=== PATIENT | male | born 1995 | race Caucasian/White ===

== ENCOUNTER 2016-09-04 15:08 | Emergency (ER) | payer OTHER ==
[~2016-09-04] VITALS: Ht 175.3 cm; Wt 56.7 kg
[2016-09-04 17:01] VITALS: BP 130/78
== END 2016-09-04 17:01 | disposition home or self-care (01) ==
LOC: EDBD 15:08 → M ED 16:16
DX: R07.89 Other chest pain (principal)

== ENCOUNTER 2016-09-15 12:00 | Inpatient (IN) | payer OTHER ==
[~2016-09-15] VITALS: Ht 175.3 cm; Wt 57.7 kg
[2016-09-15] MEDS ORDERED: ADV100INH INH (12:17)
[2016-09-15] MEDS ORDERED: ALBU17IN2 INH (12:17)
[2016-09-15 12:54] LABS: MEAN CORPUSCULAR HEMOGLOBIN 30.7 pg (27.0-33.0); MEAN CORPUSCULAR HGB CONC 34.8 g/dl (32.0-36.5); MEAN CORPUSCULAR VOLUME 88.1 fl (80.0-96.0); RED CELL DISTRIBUTION WIDTH 11.7 % (11.5-14.5); WHITE BLOOD COUNT 7.7 K/mm3 (4.0-10.0)
[2016-09-15 13:57] LABS: ALBUMIN 4.1 GM/DL (3.2-5.2); ALBUMIN/GLOBULIN RATIO 1.41 (1.00-1.93); ALKALINE PHOSPHATASE 81 U/L (45-117); ALT/SGPT 30 U/L (12-78); ANION GAP 6 MEQ/L (8-16); AST/SGOT 29 U/L (15-37); BILIRUBIN,DIRECT 0.2 MG/DL (0.0-0.2); BILIRUBIN,TOTAL 0.9 MG/DL (0.2-1.0); BLOOD UREA NITROGEN 14 MG/DL (7-18); CARBON DIOXIDE LEVEL 29 MEQ/L (21-32); CHLORIDE LEVEL 105 MEQ/L (98-107); CREATININE FOR GFR 0.81 MG/DL (0.70-1.30); GLUCOSE, FASTING 84 MG/DL (70-105); POTASSIUM SERUM 4.2 MEQ/L (3.5-5.1); SODIUM LEVEL 140 MEQ/L (136-145)
[2016-09-15 14:14] LABS: METHADONE URINE NEGATIVE (NEGATIVE)
[2016-09-15 17:13] VITALS: BP 123/73
[2016-09-15] MEDS ORDERED: ALBUTEROL 90 MCG/ACT 8GM HFA INHALER INH ONE (19:15)
[2016-09-15] MEDS: ADVAIR DISKUS 100/50 INH PWD INH SCH (22:03)
[2016-09-16 06:55] VITALS: BP 100/56
[2016-09-16] MEDS ORDERED: ALBUTEROL 90 MCG/ACT 8GM HFA INHALER INH SCH (09:00)
[2016-09-16] MEDS: ADVAIR DISKUS 100/50 INH PWD INH SCH ×2 (09:09→22:54)
[2016-09-16 18:00] VITALS: BP 113/60
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
[2016-09-16] MEDS ORDERED: ALBUTEROL 90 MCG/ACT 8GM HFA INHALER INH PRN (23:45)
--- NOTE | 2016-09-17 04:46 | HPE ---
DATE OF ADMISSION: 09/15/2016 HISTORY OF PRESENT ILLNESS: Please refer to psychiatric history and evaluation for further details on this admission. This examination and history is intended for medical issues, which may need treatment, followup or consult on this 20-year-old male. ALLERGIES: NICKEL. PRIMARY CARE PROVIDER: [facility]. 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 Ethyl alcohol (EtOH) none. Smokes none. Recreational drug use none. PAST MEDICAL HISTORY: Asthma. PAST SURGICAL HISTORY: Negative. HOME MEDICATIONS: - Advair 150/50 one inhalation by mouth twice a day - albuterol two puffs by mouth three times a day as needed for shortness of breath or wheeze FAMILY HISTORY: Noncontributory. LABORATORY STUDIES: CBC was normal. Electrolytes were normal. BUN and creatinine 14 and 0.81. Toxicology screen negative. REVIEW OF SYSTEMS: 10-system review was done. Patient had no complaints, was feeling well. OBJECTIVE: Height 69 inches, weight 57.6 kg, body mass index (BMI) 18.8. Blood pressure 122/73, pulse 75, respirations 16, temperature 98.2. Patient is alert and oriented times three. Pupils equal and react to light. Extraocular muscles intact. Cornea and sclerae clear. Conjunctivae were normal. No facial asymmetry. Pharynx, tongue and gums pink and moist. Tongue is midline. Neck is supple without lymphadenopathy. No thyromegaly, no goiter. Chest clear to auscultation without wheeze or retraction. Heart is regular. Abdomen is benign. Has a few very superficial self-inflicted lacerations. No redness or drainage. Bowel sounds positive. Genitourinary/rectal: Not done. Extremities show equal strength, full range of motion. No cyanosis, clubbing or edema. Peripheral pulses equal and palpable bilaterally. Skin is warm and dry. IMPRESSION/PLAN: 1. Psychiatric plan per psychiatry. 2. History of asthma. Continue Advair 100/50 one inhalation by mouth twice a day and albuterol two puffs by mouth three times a day as needed for shortness of breath or wheeze. No acute medical issues.
[2016-09-17 06:33] VITALS: BP 135/60
[2016-09-17] MEDS: ADVAIR DISKUS 100/50 INH PWD INH SCH ×2 (08:26→22:52)
[2016-09-17] MEDS ORDERED: MAALOX 30 ML SUSP *UDC PO PRN (13:45)
[2016-09-17] MEDS ORDERED: MOM 30ML SUSPENSION UDC PO PRN (13:45)
[2016-09-17] MEDS ORDERED: ACETAMINOPHEN TAB 650MG DOSE (2X325MG) PO PRN (13:45)
[2016-09-17] MEDS ORDERED: traZODone 50 MG TAB PO PRN (13:45)
[2016-09-17 18:00] VITALS: BP 110/58
--- NOTE | 2016-09-18 06:10 | IPN ---
DATE: 09/17/2016 SUBJECTIVE: The patient states, "I'm feeling pretty good." He has no complaints. He says he slept well. Says he has not had any episodes of blackouts. He says that sometimes he heard the moaning voice, but seems to be quite distant and is not bothering him.. MENTAL STATUS EXAMINATION: He is alert and oriented times three. He is pleasant, cooperative. Verbally spontaneous. There is no formal thought disorder noted. He says his mood is good , and affect full range and appropriate. He is not psychotic, suicidal, or homicidal. Concentration and memory are good. Insight and judgment good. DIAGNOSES: 1. Adjustment disorder, unspecified. 2. History of conversion disorder. TREATMENT PLAN: At this point, we will continue to monitor the patient for continued resolution of any self harm thoughts. Also, again I will clarify that I do not think that the patient is really having hallucinations. We have not noticed any episodes of blackouts or anything consistent with conversion disorder. At this point, I do not think treatment with medication is indicated. JANINA
[2016-09-18 06:50] VITALS: BP 112/57
[2016-09-18] MEDS: ADVAIR DISKUS 100/50 INH PWD INH SCH ×2 (08:50→21:43)
--- NOTE | 2016-09-18 13:43 | IPNPDOC ---
[facility] Progress Note Progress Note DATE OF SERVICE: 09/18/16 HISTORY: Patient is 20-year-old male who was previously active with [facility] outpatient behavioral health noting he is being reported for conversion disorder , was recently admitted to the inpatient environment due to suicidal thinking with desire to walk into traffic. Patient indicates he has been diagnosed with conversion disorder due to experiencing episodes where he gets dizzy, experiences chest pain, shortness of breath and, at times passes out. In addition, patient recently engaged in cutting to abdominal area noting he has no recollection of event. Patient indicates he does not sleep well, notes he slept approximately 5 hours last night, reports nightmares 4-5 nights per week, indicates he struggles with latency and maintenance sleep problems. Patient rates current anxiety level as 2/10, depression 0/10 noting, "I don't see myself as depressed." Patient denies current suicidal and homicidal ideation, denies current audiovisual hallucinations, denies current urge to engage in self -injurious behavior. Patient states he experienced audio hallucination of "just a voice calling my name for help, if not distressing and it never tells me to do anything." Patient states he also experiences visual hallucinations noting, "sometimes I think I see someone out of the corner of my eye and then I turn and there is no one there." Patient denies history of suicide attempts or self- injurious behavior prior to recent abdominal SIB. Patient attributes symptoms to stress related to current living situation and "stress from the [employer]," adding he has "no clue why symptoms are occurring, they just seem to happen when I get hot-headed or worked up, and especially when I'm exercising." Patient describes symptoms as "my throat swells, I get short of breath, I just feels like it's trying to sleep, get dizzy, sometimes I get blurred vision, and then sometimes I lose my vision." Patient notes [facility] has "run multiple tests on my heart my lungs for the past 6 months and all they can come up with is asthma so, given the circumstances, I'm good with the med board so I can get out." Patient denies aforementioned symptoms at this time. Patient is currently declining psychotropic medications, was encouraged to consider connection between physical symptoms and symptoms of anxiety, was also encouraged to utilize trazodone for sleep in effort to reduce symptoms and regulate sleep cycle. Patient is future oriented, notes he has two plans for after med board completion. 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 VITAL SIGNS: See below. NEW TEST RESULTS: No new results. Labs on admission CBC within normal limits, low anion gap. Patient indicates he has undergone extensive testing related to symptoms of dizziness, shortness of breath, chest tightness which usually occur on exertion during PT exercises. Patient is a history of asthma for which she uses inhaler and migraine. UDS negative 03/30/16 echocardiogram normal 04/19/16 SINUS BRADYCARDIA WITH SHORT HI INTERVAL CURRENT MEDICATIONS: See below. MENTAL STATUS EXAMINATION: Patient is a 20-year old male, who is pleasant and cooperative, exhibits adequate personal hygiene, makes fair eye contact with prolonged gaze at times, is dressed in hospital clothing, ambulates with steady gait, appears stated age Speech: Is of normal rate, rhythm, volume, spontaneous, coherent. Language skills are within normal limits Thought processes including: Linear, logical, clear, goal directed. Thought content: Rational, logical. Abstract reasoning, and computation: Appear intact Description of associations: Intact Description of abnormal or psychotic thoughts: Reports audiovisual hallucinations, however, is vague in description, denies all command element to sensory experience. Judgment: Poor. Insight: Poor. Orientation: A and O 3. Recent and remote memory: Intact. Attention span and concentration: Within normal limits. Language: Within normal limits. Fund of knowledge: Appears adequate. Mood: "Okay" Affect: Mild constriction, brightens, congruent with mood DIAGNOSES: Adjustment disorder with anxiety, rule out anxiety disorder, rule out PTSD, conversion disorder by history ASSESSMENT: Patient appears to be adjusting to unit, is attending groups, is visible, and is pleasant and cooperative. Patient minimizes symptoms, denies understanding of possible connection between reported physical symptoms and psychological symptoms, is declining psychotropic medications at this time noting, "I prefer to do things the natural way." Patient reports history of poor sleep involving both latency and maintenance challenges, and nightmares. Patient has been encouraged to consider taking psychotropic medications and has been encouraged to take trazodone at night for sleep in effort to regulate circadian rhythm and reduce symptoms of anxiety. Will evaluate need for prazosin to address nightmares. Patient denies suicidal and homicidal ideation and is able to verbalize how to access supportive services on the unit if needed. Will monitor patient response to inpatient treatment and medications if he elects to take. Will evaluate patient's safety, resolution of suicidal ideation, and discharge readiness. Patient verbalizes awareness that discharge plan will be to return to [facility], is agreeable to participating in outpatient psychotherapy upon discharge. MANAGEMENT PLAN: Encourage patient to consider taking psychotropic medication to address symptoms if appropriate Maintain safety precautions Patient to attend groups and participate in unit programming to develop coping strategies Engage patient in discharge planning process and arrange meeting with support system to ensure safe discharge planning when appropriate Patient to follow up with [facility] upon discharge TIME SPENT: 35 minutes. Vital Signs Vital Signs Date Time Temp Pulse Resp B/P Pulse Ox O2 Delivery O2 Flow Rate FiO2 09/18/16 06:50 98.2 58 18 112/57 09/17/16 06:33 Room Air 09/15/16 17:13 100 Current Medications Current Medications Acetaminophen (Tylenol Tab) 650 mg Q6HP PRN PO HEADACHE or DISCOMFORT; Start at 13:45; Stop 10/17/16 at 13:44 Al Hydrox/Mg Hydrox/Simethicone (Mylanta) 30 ml Q4HP PRN PO HEARTBURN/ INDIGESTION; Start 09/17/16 at 13:45; Stop 10/17/16 at 13:44 Albuterol Sulfate (Proventil, Ventolin Hfa) 2 puff DAILY INH Last administered on 09/16/16t 09:09; Start 09/16/16 at 09:00; Stop 09/16/16 at 23:42; Status DC Albuterol Sulfate (Proventil, Ventolin Hfa) 2 puff Q6HP PRN INH SHORTNESS OF BREATH; Start 09/16/16 at 23:45; Stop 10/16/16 at 23:44 Home Med (Med Rec Complete!) ASDIRECTED XX ; Start 09/15/16 at 15:15; Stop at 15:15; Status DC Magnesium Hydroxide (Milk Of Magnesia) 30 ml DAILYPRN PRN PO CONSTIPATION; Start 09/17/16 at 13:45; Stop 10/17/16 at 13:44 Salmeterol Xinafoate/ Fluticasone (Advair Diskus 100/50) 1 puff BID INH Last administered on 09/18/16t 08:50; Start 09/15/16 at 21:00; Stop 10/15/16 at 20:59 Trazodone HCl (Desyrel) 50 mg QHSP PRN PO INSOMNIA; Start 09/17/16 at 13:45; Stop 10/17/16 at 13:44 Allergies Coded Allergies: Nickel (Verified Allergy, Unknown, 05/02/16) Cheyenne Andersen Sep 18, 2016 13:43
[2016-09-18 18:00] VITALS: BP 118/67
[2016-09-19 06:42] VITALS: BP 118/56
[2016-09-19] MEDS: ADVAIR DISKUS 100/50 INH PWD INH SCH ×2 (08:02→21:23)
--- NOTE | 2016-09-19 15:17 | IPNPDOC ---
[facility] Progress Note Progress Note DATE OF SERVICE: 09/19/16 HISTORY: Patient is 20-year-old male who was previously active with [facility] noting he is being reported for conversion disorder , was recently admitted to the inpatient environment due to suicidal thinking with desire to walk into traffic, had recent superficial cutting episode to abdominal area. Patient states he has been diagnosed with conversion disorder ( unconfirmed) due to experiencing episodes where he gets dizzy, experiences chest pain, shortness of breath and, at times passes out. In addition, patient recently engaged in cutting to abdominal area noting he has no recollection of event. Patient reports improved sleep with use of trazodone last night, however , indicates he experienced latency of approximately 45 minutes and woke up 4-5 times during the night, is today requesting dose increase in effort to rectify aforementioned sleep challenges. Patient reports improvement to symptoms of anxiety and depression, denies audiovisual hallucinations, denies suicidal and homicidal ideation, denies urge to engage in self-injurious behavior. Patient reports 2 brief episodes of dizziness which occurred last night, notes this is typical for him and verbalizes safety precautions and ways to mitigate symptoms should they recur. Patient was placed on fall precautions and was instructed to notify nursing should symptoms reemerge. Patient denies symptoms of throat swelling, pain, blurred vision, loss of vision, syncope, reiterates today that multiple pulmonary and cardiac tests and run with no medical diagnoses concluded. Patient indicates it is his understanding that he is being med board out of the [employer]. Patient remains future oriented, reiterates today he has two plans for after med board completion. 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 VITAL SIGNS: See below. NEW TEST RESULTS: No new results. Labs on admission CBC within normal limits, low anion gap. Patient indicates he has undergone extensive testing related to symptoms of dizziness, shortness of breath, chest tightness which usually occur on exertion during PT exercises. Patient is a history of asthma for which she uses inhaler and migraine. UDS negative 03/30/16 echocardiogram normal 04/19/16 SINUS BRADYCARDIA WITH SHORT DE INTERVAL CURRENT MEDICATIONS: See below. MENTAL STATUS EXAMINATION: Patient is a 20-year old male, who is pleasant and cooperative, exhibits adequate personal hygiene, makes fair eye contact with normal gaze, is dressed in hospital clothing, ambulates with steady gait, appears stated age Speech: Is of normal rate, rhythm, volume, spontaneous, coherent. Language skills are within normal limits Thought processes including: Linear, logical, clear, goal directed. Thought content: Rational, logical. Abstract reasoning, and computation: Appear intact Description of associations: Intact Description of abnormal or psychotic thoughts: Denies audiovisual hallucinations , denies delusional thinking, no paranoia noted. At intake patient reported history of audiovisual hallucinations, however, was vague in description, denied all command element to sensory experience. Judgment: Poor. Insight: Poor. Orientation: A and O 3. Recent and remote memory: Intact. Attention span and concentration: Within normal limits. Language: Within normal limits. Fund of knowledge: Appears adequate. Mood: "Okay, better " Affect: Mild constriction, brightens, congruent with mood DIAGNOSES: Adjustment disorder with anxiety, rule out anxiety disorder, rule out PTSD, conversion disorder by history per patient report ASSESSMENT: Patient appears to be adjusting well to unit, has been attending groups, is socializing with peers and is visible on unit. Patient 10 use to minimize symptoms, denies understanding of possible connection between reported physical symptoms and psychological symptoms, is declining antidepressant medication at this time. Patient is requesting trazodone dose increase in effort to reduce latency and improve maintenance, denies medication side effects , denies experiencing nightmares last night. Will continue to evaluate need for prazosin to address nightmare symptoms of reported. Patient denies suicidal and homicidal ideation and is able to verbalize how to access supportive services on the unit if needed. Will monitor patient response to trazodone and inpatient treatment. Will also evaluate patient's safety, resolution of suicidal ideation , and discharge readiness. Patient verbalizes awareness that discharge plan will be to return to [facility], is agreeable to participating in outpatient psychotherapy upon discharge. MANAGEMENT PLAN: Increase trazodone to 100 mg po hs PRN insomnia. Continue to encourage patient to consider taking antidepressant medication to address symptoms if appropriate Patient placed on fall precautions Maintain safety precautions Patient to attend groups and participate in unit programming to develop coping strategies Engage patient in discharge planning process and arrange meeting with support system to ensure safe discharge planning when appropriate Patient to follow up with [facility] upon discharge TIME SPENT: 25 minutes. Vital Signs Vital Signs Date Time Temp Pulse Resp B/P Pulse Ox O2 Delivery O2 Flow Rate FiO2 09/19/16 06:42 98.9 76 16 118/56 09/17/16 06:33 Room Air 09/15/16 17:13 100 Current Medications Current Medications Acetaminophen (Tylenol Tab) 650 mg Q6HP PRN PO HEADACHE or DISCOMFORT; Start at 13:45; Stop 10/17/16 at 13:44 Al Hydrox/Mg Hydrox/Simethicone (Mylanta) 30 ml Q4HP PRN PO HEARTBURN/ INDIGESTION; Start 09/17/16 at 13:45; Stop 10/17/16 at 13:44 Albuterol Sulfate (Proventil, Ventolin Hfa) 2 puff DAILY INH Last administered on 09/16/16 09:09; Start 09/16/16 at 09:00; Stop 09/16/16 at 23:42; Status DC Albuterol Sulfate (Proventil, Ventolin Hfa) 2 puff Q6HP PRN INH SHORTNESS OF BREATH; Start 09/16/16 at 23:45; Stop 10/16/16 at 23:44 Home Med (Med Rec Complete!) ASDIRECTED XX ; Start 09/15/16 at 15:15; Stop at 15:15; Status DC Magnesium Hydroxide (Milk Of Magnesia) 30 ml DAILYPRN PRN PO CONSTIPATION; Start 09/17/16 at 13:45; Stop 10/17/16 at 13:44 Salmeterol Xinafoate/ Fluticasone (Advair Diskus 100/50) 1 puff BID INH Last administered on 09/19/16 08:02; Start 09/15/16 at 21:00; Stop 10/15/16 at 20:59 Trazodone HCl (Desyrel) 50 mg QHSP PRN PO INSOMNIA Last administered on 22:58; Start 09/17/16 at 13:45; Stop 10/17/16 at 13:44 Allergies Coded Allergies: Nickel (Verified Allergy, Unknown, 05/02/16) Cheyenne Andersen Sep 19, 2016 15:17 Allergies Coded Allergies: Nickel (Verified Allergy, Unknown, 05/02/16) Cheyenne Andersen Sep 19, 2016 15:17
[2016-09-19 18:00] VITALS: BP 144/78
[2016-09-19] MEDS: traZODone 100 MG TAB PO PRN (21:24)
[2016-09-20 06:42] VITALS: BP 126/60
[2016-09-20] MEDS: ADVAIR DISKUS 100/50 INH PWD INH SCH ×2 (09:33→21:45)
--- NOTE | 2016-09-20 10:04 | IPNPDOC ---
[facility] Progress Note Progress Note DATE OF SERVICE: 09/20/16 HISTORY: Patient is 20-year-old male who was previously active with [facility] noting he is being reported for conversion disorder , was recently admitted to the inpatient environment due to suicidal thinking with desire to walk into traffic, had recent superficial cutting episode to abdominal area. Patient states he has been diagnosed with conversion disorder due to experiencing episodes where he gets dizzy, experiences chest pain, shortness of breath and, at times passes out. In addition, patient recently engaged in cutting to abdominal area noting he has no recollection of event. Patient reports improved sleep with dose increase of trazodone last night, reports nightmare 1 adding symptoms are manageable. Patient states he had "episode" last night where in he became very anxious with dizziness, feeling like he wanted to hit something, states he was able to talk to a friend and color to effectively de-escalate. However, patient indicates today he is interested in antidepressant medication trial, also makes requests for PRN anxiolytic should aforementioned symptoms return. Patient denies suicidal and homicidal ideation, denies audiovisual hallucinations, denies urge to engage in self-injurious behavior. Patient denies symptoms of throat swelling, pain, blurred vision, loss of vision, syncope, reiterates today that multiple pulmonary and cardiac tests and run with no medical diagnoses concluded. 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 Patient indicates energy level is low, appetite is stable, and he denies challenges with concentration focus. Patient remains future oriented, reiterates today he has two plans for after med board completion. 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 VITAL SIGNS: See below. NEW TEST RESULTS: No new results. Labs on admission CBC within normal limits, low anion gap. Patient indicates he has undergone extensive testing related to symptoms of dizziness, shortness of breath, chest tightness which usually occur on exertion during PT exercises. Patient is a history of asthma for which she uses inhaler and migraine. UDS negative 03/30/16 echocardiogram normal 04/19/16 SINUS BRADYCARDIA WITH SHORT [place] INTERVAL CURRENT MEDICATIONS: See below. MENTAL STATUS EXAMINATION: Patient is a 20-year old male, who is pleasant and cooperative, exhibits adequate personal hygiene, makes improved eye contact, is dressed in own clothing, ambulates with steady gait, appears stated age Speech: Is of normal rate, rhythm, volume, spontaneous, coherent. Language skills are within normal limits Thought processes including: Linear, logical, clear, goal directed. Thought content: Rational, logical. Abstract reasoning, and computation: Appear intact Description of associations: Intact Description of abnormal or psychotic thoughts: Denies audiovisual hallucinations , denies delusional thinking, no paranoia noted. At intake patient reported history of audiovisual hallucinations, however, was vague in description, denied all command element to sensory experience. Judgment: Poor. Insight: Poor. Orientation: A and O 3. Recent and remote memory: Intact. Attention span and concentration: Within normal limits. Language: Within normal limits. Fund of knowledge: Appears adequate. Mood: "I'm a little anxious, may be medication would help." Patient appears anxious and depressed, no mood lability noted Affect: Mild constriction, brightens, congruent with mood DIAGNOSES: Adjustment disorder with anxiety, rule out anxiety disorder, rule out PTSD, conversion disorder by history per patient report ASSESSMENT: Patient appears to be adjusting well to unit, has been attending groups, is socializing with peers and is visible on unit. Patient is minimizing symptoms less today, verbalizes awareness that he is experiencing anxiety and possibly depression, is today requesting psychotropic medication trial in effort to address symptoms. Patient is requesting to continue trazodone, also expresses desire for PRN anxiolytic should symptoms of agitation reemerge. Will initiate SSRI medication trial, will add hydroxyzine to be used PRN for anxiety , and will continue to evaluate need for prazosin to address nightmare symptoms. Patient denies suicidal and homicidal ideation and is able to verbalize how to access supportive services on the unit if needed. Will monitor patient response to medications and inpatient treatment. Will also evaluate patient's safety, resolution of suicidal ideation, and discharge readiness. Patient verbalizes awareness that discharge plan will be to return to [facility], is agreeable to participating in outpatient psychotherapy upon discharge. MANAGEMENT PLAN: Initiate med trial Zoloft 25 mg po q am with plan to titrate as tolerated by patient. Initiate hydroxyzine 50 mg po q 6 hours PRN anxiety/ agitation. Continue trazodone to 100 mg po hs PRN insomnia. Patient placed on fall precautions Maintain safety precautions Patient to attend groups and participate in unit programming to develop coping strategies Engage patient in discharge planning process and arrange meeting with support system to ensure safe discharge planning when appropriate Patient to follow up with [facility] upon discharge TIME SPENT: 35 minutes. Vital Signs Vital Signs Date Time Temp Pulse Resp B/P Pulse Ox O2 Delivery O2 Flow Rate FiO2 09/20/16 06:42 98.1 61 16 126/60 09/17/16 06:33 Room Air 09/15/16 17:13 100 Current Medications Current Medications Acetaminophen (Tylenol Tab) 650 mg Q6HP PRN PO HEADACHE or DISCOMFORT; Start at 13:45; Stop 10/17/16 at 13:44 Al Hydrox/Mg Hydrox/Simethicone (Mylanta) 30 ml Q4HP PRN PO HEARTBURN/ INDIGESTION; Start 09/17/16 at 13:45; Stop 10/17/16 at 13:44 Albuterol Sulfate (Proventil, Ventolin Hfa) 2 puff DAILY INH Last administered on 09/16/16 09:09; Start 09/16/16 at 09:00; Stop 09/16/16 at 23:42; Status DC Albuterol Sulfate (Proventil, Ventolin Hfa) 2 puff Q6HP PRN INH SHORTNESS OF BREATH; Start 09/16/16 at 23:45; Stop 10/16/16 at 23:44 Home Med (Med Rec Complete!) ASDIRECTED XX ; Start 09/15/16 at 15:15; Stop at 15:15; Status DC Magnesium Hydroxide (Milk Of Magnesia) 30 ml DAILYPRN PRN PO CONSTIPATION; Start 09/17/16 at 13:45; Stop 10/17/16 at 13:44 Salmeterol Xinafoate/ Fluticasone (Advair Diskus 100/50) 1 puff BID INH Last administered on 09/20/16 09:33; Start 09/15/16 at 21:00; Stop 10/15/16 at 20:59 Sertraline HCl (Zoloft) 25 mg QAM PO ; Start 09/20/16 at 09:00; Stop 10/20/16 at 08:59 Trazodone HCl (Desyrel) 50 mg QHSP PRN PO INSOMNIA Last administered on 22:58; Start 09/17/16 at 13:45; Stop 09/19/16 at 15:07; Status DC Trazodone HCl (Desyrel) 100 mg QHSP PRN PO INSOMNIA Last administered on 21:24; Start 09/19/16 at 15:15; Stop 10/19/16 at 15:14 Allergies Coded Allergies: Nickel (Verified Allergy, Unknown, 05/02/16) Cheyenne Andersen Sep 20, 2016 10:04
[2016-09-20] MEDS: SERTRALINE HCL 25 MG TABLET PO SCH (10:15)
[2016-09-20] MEDS: traZODone 100 MG TAB PO PRN (22:54)
[2016-09-20] MEDS: hydrOXYzine 50 MG TAB PO PRN (23:29)
[2016-09-21 06:34] VITALS: BP 123/60
[2016-09-21] MEDS: ADVAIR DISKUS 100/50 INH PWD INH SCH ×2 (07:59→22:02)
[2016-09-21] MEDS: SERTRALINE HCL 25 MG TABLET PO SCH (07:59)
[2016-09-21 18:00] VITALS: BP 132/60
--- NOTE | 2016-09-21 19:02 | IPNPDOC ---
[facility] Progress Note Progress Note DATE OF SERVICE: 09/21/16 HISTORY: Patient is 20-year-old male who was previously active with [facility] noting he is being reported for conversion disorder , was recently admitted to the inpatient environment due to suicidal thinking with desire to walk into traffic, had recent superficial cutting episode to abdominal area. Patient states he has been diagnosed with conversion disorder due to experiencing episodes where he gets dizzy, experiences chest pain, shortness of breath and, at times passes out. In addition, patient recently engaged in cutting to abdominal area noting he has no recollection of event. Patient rates current anxiety level is 3/10, depression 4/10, denies suicidal and homicidal ideation, denies current audiovisual hallucinations, denies urge to engage in self-injurious behavior. With regard to audio visual hallucinations patient indicates last night while lying in bed he felt as if he was being watched and thought he heard laughing. Patient notes he then saw a "little kid crunching by some wall lockers who called me dad." Patient denies all command element to sensory experience and indicates he was attempting to sleep in a dark room, has been advised to continue to monitor for symptoms, denies experiencing nightmare symptoms last night. Patient has taken 2 doses of Zoloft, denies medication side effects and denies experiencing episodes of anxiety or dizziness or desire to hit something, notes he has trialed PRN hydroxyzine 1 to address anxiety/sleep last night, notes medication worked with good effect. Patient denies symptoms of throat swelling, pain, blurred vision, loss of vision, syncope, reiterates today that multiple pulmonary and cardiac tests and run with no medical diagnoses concluded. 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 Patient indicates energy level is low, appetite is stable, and he denies challenges with concentration focus. Patient remains future oriented, has indicated he has two plans for after med board completion. 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 VITAL SIGNS: See below. NEW TEST RESULTS: No new results. Labs on admission CBC within normal limits, low anion gap. Patient indicates he has undergone extensive testing related to symptoms of dizziness, shortness of breath, chest tightness which usually occur on exertion during PT exercises. Patient is a history of asthma for which she uses inhaler and migraine. UDS negative 03/30/16 echocardiogram normal 04/19/16 SINUS BRADYCARDIA WITH SHORT [place] INTERVAL CURRENT MEDICATIONS: See below. MENTAL STATUS EXAMINATION: Patient is a 20-year old male, who is pleasant and cooperative, exhibits adequate personal hygiene, makes improved eye contact, is dressed in own clothing, ambulates with steady gait, appears stated age Speech: Is of normal rate, rhythm, volume, spontaneous, coherent. Language skills are within normal limits Thought processes including: Linear, logical, clear, goal directed. Thought content: Rational, logical. Abstract reasoning, and computation: Appear intact Description of associations: Intact Description of abnormal or psychotic thoughts: Denies audiovisual hallucinations at time of interaction, however, reports feelings of being watched and seeing a small child and hearing that child call him dad last night while lying in a dark room and attempting to sleep, denies delusional thinking, no paranoia noted at time of assessment. At intake patient reported history of audiovisual hallucinations, however, was vague in description, denied all command element to sensory experience. Judgment: Poor. Insight: Poor. Orientation: A and O 3. Recent and remote memory: Intact. Attention span and concentration: Within normal limits. Language: Within normal limits. Fund of knowledge: Appears adequate. Mood: "I'm ok," Patient appears moderately anxious and less depressed, no mood lability noted Affect: Mild constriction, brightens, congruent with mood DIAGNOSES: Adjustment disorder with anxiety, rule out anxiety disorder, rule out PTSD, conversion disorder by history per patient report ASSESSMENT: Patient appears to be adjusting well to unit, has been attending groups, is socializing with peers and is visible on unit. Patient is minimizing symptoms less today, verbalizes awareness that he is experiencing anxiety and possibly depression, has begun taking Zoloft and denies medication side effects , however, reports symptoms of audiovisual hallucinations occurred last night, will monitor to evaluate if connection to initiation of antidepressant medication. Patient is requesting to continue trazodone, has utilized PRN anxiolytic 1 with good effect reported. Will continue to evaluate need for prazosin to address nightmare symptoms. Patient denies suicidal and homicidal ideation and is able to verbalize how to access supportive services on the unit if needed. Will monitor patient response to medications and inpatient treatment. Will also evaluate patient's safety, resolution of suicidal ideation , and discharge readiness. Patient verbalizes awareness that discharge plan will be to return to [facility], is agreeable to participating in outpatient psychotherapy upon discharge. MANAGEMENT PLAN: Continue Zoloft 25 mg po q am with plan to titrate as tolerated by patient. Continue hydroxyzine 50 mg po q 6 hours PRN anxiety/ agitation and trazodone to 100 mg po hs PRN insomnia. Patient placed on fall precautions Maintain safety precautions Patient to attend groups and participate in unit programming to develop coping strategies Engage patient in discharge planning process and arrange meeting with support system to ensure safe discharge planning when appropriate Patient to follow up with [facility] upon discharge TIME SPENT: 35 minutes. Vital Signs Vital Signs Date Time Temp Pulse Resp B/P Pulse Ox O2 Delivery O2 Flow Rate FiO2 09/21/16 06:34 97.1 77 16 123/60 09/17/16 06:33 Room Air 09/15/16 17:13 100 Current Medications Current Medications Acetaminophen (Tylenol Tab) 650 mg Q6HP PRN PO HEADACHE or DISCOMFORT; Start at 13:45; Stop 10/17/16 at 13:44 Al Hydrox/Mg Hydrox/Simethicone (Mylanta) 30 ml Q4HP PRN PO HEARTBURN/ INDIGESTION; Start 09/17/16 at 13:45; Stop 10/17/16 at 13:44 Albuterol Sulfate (Proventil, Ventolin Hfa) 2 puff DAILY INH Last administered on 09/16/16 09:09; Start 09/16/16 at 09:00; Stop 09/16/16 at 23:42; Status DC Albuterol Sulfate (Proventil, Ventolin Hfa) 2 puff Q6HP PRN INH SHORTNESS OF BREATH; Start 09/16/16 at 23:45; Stop 10/16/16 at 23:44 Home Med (Med Rec Complete!) ASDIRECTED XX ; Start 09/15/16 at 15:15; Stop at 15:15; Status DC Hydroxyzine HCl (Atarax) 50 mg Q6HP PRN PO ANXIETY/AGITATION Last administered on 09/20/16 23:29; Start 09/20/16 at 10:15; Stop 10/20/16 at 10:14 Magnesium Hydroxide (Milk Of Magnesia) 30 ml DAILYPRN PRN PO CONSTIPATION; Start 09/17/16 at 13:45; Stop 10/17/16 at 13:44 Salmeterol Xinafoate/ Fluticasone (Advair Diskus 100/50) 1 puff BID INH Last administered on 09/21/16 07:59; Start 09/15/16 at 21:00; Stop 10/15/16 at 20:59 Sertraline HCl (Zoloft) 25 mg QAM PO Last administered on 09/21/16 07:59; Start 09/20/16 at 09:00; Stop 10/20/16 at 08:59 Trazodone HCl (Desyrel) 50 mg QHSP PRN PO INSOMNIA Last administered on 22:58; Start 09/17/16 at 13:45; Stop 09/19/16 at 15:07; Status DC Trazodone HCl (Desyrel) 100 mg QHSP PRN PO INSOMNIA Last administered on 22:54; Start 09/19/16 at 15:15; Stop 10/19/16 at 15:14 Allergies Coded Allergies: Nickel (Verified Allergy, Unknown, 05/02/16) Cheyenne Andersen Sep 21, 2016 19:02
[2016-09-21] MEDS: traZODone 100 MG TAB PO PRN (22:02)
[2016-09-22 05:57] VITALS: BP 109/56
[2016-09-22] MEDS: SERTRALINE HCL 25 MG TABLET PO SCH (08:08)
[2016-09-22] MEDS: ADVAIR DISKUS 100/50 INH PWD INH SCH ×2 (08:08→21:15)
--- NOTE | 2016-09-22 16:26 | IPNPDOC ---
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 Patient states he has been diagnosed with conversion disorder due to experiencing episodes where he gets dizzy, experiences chest pain, shortness of breath and, at times passes out. In addition, patient recently engaged in cutting to abdominal area noting he has no recollection of event. Patient states he had chain of command meeting earlier today which he indicates was highly anxiety provoking, rates current anxiety level as 6/10, depression 5/ 10, denies suicidal and homicidal ideation, denies audiovisual hallucinations, notes last experienced brief auditory hallucination last night and last experienced visual hallucinations 2 nights ago, denies command element to sensory experience and states were not distressing. Patient denies urge to engage in self injurious behavior. Patient reports improved sleep, indicates he had one nightmare last night from which he did not awaken, has been taking trazodone with good effect. Patient has taken Zoloft 3 days, reports reduction in symptoms of depression and anxiety, however, states "sometimes I just don't feel like myself." When asked to explain, patient indicates he is accustomed to feeling depressed and now feels less depressed, states to sports book writer, "when I was younger I was always a happy person and I would like to feel like that again." Patient appears fidgety during interaction and indicates he has "always been fidgety." Patient has trialed PRN hydroxyzine 1 to address anxiety /sleep challenges, notes medication was effective. Patient denies medication side effects and denies experiencing episodes of anxiety or dizziness or desire to hit something. 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 Patient reports improvement in energy level and denies challenges with concentration and focus, states appetite is stable. 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 Patient remains future oriented, has indicated he has two plans for after med board completion. 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 VITAL SIGNS: See below. NEW TEST RESULTS: No new results. Labs on admission CBC within normal limits, low anion gap. Patient indicates he has undergone extensive testing related to symptoms of dizziness, shortness of breath, chest tightness which usually occur on exertion during PT exercises. Patient is a history of asthma for which she uses inhaler and migraine. UDS negative 03/30/16 echocardiogram normal 04/19/16 SINUS BRADYCARDIA WITH SHORT [place] INTERVAL CURRENT MEDICATIONS: See below. MENTAL STATUS EXAMINATION: Patient is a 20-year old male, who is pleasant and cooperative, exhibits adequate personal hygiene, makes improved eye contact, is dressed in own clothing, ambulates with steady gait, appears stated age Speech: Is of normal rate, rhythm, volume, spontaneous, coherent. Language skills are within normal limits Thought processes including: Linear, logical, clear, goal directed. Thought content: Rational, logical. Abstract reasoning, and computation: Appear intact Description of associations: Intact Description of abnormal or psychotic thoughts: Denies audiovisual hallucinations at time of interaction, denies delusional thinking, no paranoia noted at time of assessment. Judgment: Poor. Insight: Poor. Orientation: A and O 3. Recent and remote memory: Intact. Attention span and concentration: Within normal limits. Language: Within normal limits. Fund of knowledge: Appears adequate. Mood: "I'm feeling sarmiento now, not as depressed but not happy wither." Patient appears moderately anxious and less depressed, no mood lability noted Affect: Mild constriction, brightens, congruent with mood DIAGNOSES: Adjustment disorder with anxiety, rule out anxiety disorder, rule out PTSD, conversion disorder by history per patient report ASSESSMENT: Patient appears to be adjusting well to unit, has been attending groups, is socializing with peers and is visible on unit. Patient has been taking Zoloft at current dose 3 days, is agreeable to dose increase today in effort to further reduce symptoms of anxiety and depression. Patient continues to utilize trazodone for sleep and has used hydroxyzine 1 to address symptoms of anxiety, denies medication side effects. Patient denies suicidal and homicidal ideation and is able to verbalize how to access supportive services on the unit if needed. Will continue to evaluate need for prazosin to address nightmare symptoms and will monitor patient response to medications and inpatient treatment. Will also evaluate patient's safety, resolution of suicidal ideation, and discharge readiness. Patient verbalizes awareness that discharge plan will be to return to [facility], is agreeable to participating in outpatient psychotherapy upon discharge. MANAGEMENT PLAN: Increase Zoloft to 50 mg po q am with plan to titrate as tolerated by patient. Continue hydroxyzine 50 mg po q 6 hours PRN anxiety/ agitation and trazodone to 100 mg po hs PRN insomnia. Patient placed on fall precautions Maintain safety precautions Patient to attend groups and participate in unit programming to develop coping strategies Engage patient in discharge planning process and arrange meeting with support system to ensure safe discharge planning when appropriate Patient to follow up with [facility] upon discharge TIME SPENT: 35 minutes. Vital Signs Vital Signs Date Time Temp Pulse Resp B/P Pulse Ox O2 Delivery O2 Flow Rate FiO2 09/22/16 05:57 98.2 64 16 109/56 Room Air Current Medications Current Medications Acetaminophen (Tylenol Tab) 650 mg Q6HP PRN PO HEADACHE or DISCOMFORT; Start at 13:45; Stop 10/17/16 at 13:44 Al Hydrox/Mg Hydrox/Simethicone (Mylanta) 30 ml Q4HP PRN PO HEARTBURN/ INDIGESTION; Start 09/17/16 at 13:45; Stop 10/17/16 at 13:44 Albuterol Sulfate (Proventil, Ventolin Hfa) 2 puff DAILY INH Last administered on 09/16/16t 09:09; Start 09/16/16 at 09:00; Stop 09/16/16 at 23:42; Status DC Albuterol Sulfate (Proventil, Ventolin Hfa) 2 puff Q6HP PRN INH SHORTNESS OF BREATH; Start 09/16/16 at 23:45; Stop 10/16/16 at 23:44 Home Med (Med Rec Complete!) ASDIRECTED XX ; Start 09/15/16 at 15:15; Stop at 15:15; Status DC Hydroxyzine HCl (Atarax) 50 mg Q6HP PRN PO ANXIETY/AGITATION Last administered on 09/20/16 23:29; Start 09/20/16 at 10:15; Stop 10/20/16 at 10:14 Magnesium Hydroxide (Milk Of Magnesia) 30 ml DAILYPRN PRN PO CONSTIPATION; Start 09/17/16 at 13:45; Stop 10/17/16 at 13:44 Salmeterol Xinafoate/ Fluticasone (Advair Diskus 100/50) 1 puff BID INH Last administered on 09/22/16 08:08; Start 09/15/16 at 21:00; Stop 10/15/16 at 20:59 Sertraline HCl (Zoloft) 25 mg QAM PO Last administered on 09/22/16 08:08; Start 09/20/16 at 09:00; Stop 10/20/16 at 08:59 Trazodone HCl (Desyrel) 50 mg QHSP PRN PO INSOMNIA Last administered on 22:58; Start 09/17/16 at 13:45; Stop 09/19/16 at 15:07; Status DC Trazodone HCl (Desyrel) 100 mg QHSP PRN PO INSOMNIA Last administered on 22:02; Start 09/19/16 at 15:15; Stop 10/19/16 at 15:14 Allergies Coded Allergies: Nickel (Verified Allergy, Unknown, 05/02/16) Cheyenne Andersen Sep 22, 2016 16:26
[2016-09-22 18:00] VITALS: BP 133/77
[2016-09-22] MEDS: traZODone 100 MG TAB PO PRN (21:15)
[2016-09-23 06:00] VITALS: BP 123/58
[2016-09-23] MEDS: ADVAIR DISKUS 100/50 INH PWD INH SCH ×2 (08:51→20:32)
[2016-09-23] MEDS ORDERED: SERTRALINE HCL 25 MG TABLET PO SCH (09:00)
[2016-09-23] MEDS: SERTRALINE HCL 50 MG TAB PO SCH (09:00)
--- NOTE | 2016-09-23 13:44 | ECGEPIP ---
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 Electronically Signed On 09-23-2016 13:43:37 EDT by Eric Scott
[2016-09-23] MEDS: hydrOXYzine 50 MG TAB PO PRN (16:09)
[2016-09-23 18:00] VITALS: BP 138/71
[2016-09-23] MEDS: traZODone 100 MG TAB PO PRN (20:32)
[2016-09-24 07:02] VITALS: BP 111/55
[2016-09-24] MEDS: SERTRALINE HCL 50 MG TAB PO SCH (09:05)
[2016-09-24] MEDS: ADVAIR DISKUS 100/50 INH PWD INH SCH ×2 (09:05→21:41)
[2016-09-24 18:00] VITALS: BP 131/64
[2016-09-24] MEDS: traZODone 100 MG TAB PO PRN (21:41)
[2016-09-24 23:06] VITALS: BP 147/73
[2016-09-24 23:07] VITALS: BP_SYST 136; BP_SYST 141; BP_DIAS 77; BP_DIAS 86
[2016-09-24 23:40] LABS: BASO % 0.6 % (0.0-1.0); EOS # 0.2 K/mm3 (0.0-0.50); EOS % 2.1 % (0.0-3.0); LARGE UNSTAINED CELL # 0.1 K/mm3 (0.0-0.4); LARGE UNSTAINED CELL % 1.6 % (0.0-4.0); LYMPH % 39.3 % (24.0-44.0); MEAN CORPUSCULAR HEMOGLOBIN 30.6 pg (27.0-33.0); MEAN CORPUSCULAR HGB CONC 35.5 g/dl (32.0-36.5); MEAN CORPUSCULAR VOLUME 86.2 fl (80.0-96.0); MONO # 0.3 K/mm3 (0.0-0.8); MONO % 4.3 % (0.0-5.0); NEUTROPHILS # 3.9 K/mm3 (1.8-7.7); NEUTROPHILS % 52.2 % (36.0-66.0); PLATELET COUNT, AUTOMATED 280 k/mm3 (150-450); RED CELL DISTRIBUTION WIDTH 11.5 % (11.5-14.5); WHITE BLOOD COUNT 7.4 K/mm3 (4.0-10.0)
--- NOTE | 2016-09-24 23:40 | REPUSA ---
CT of the head Clinical history: depression. Technique: Multiple axial CT images were obtained through the head without administration of contrast . Findings: The ventricles and sulci are symmetric bilaterally. There is no evidence of acute hemorrhag e or infarct. There is no midline shift, mass effect, or extra-axial fluid collection. The osseous st ructures are unremarkable. The visualized paranasal sinuses and mastoid air cells are clear. Impression: Negative study.
[2016-09-25 00:06] VITALS: BP_SYST 107; BP_SYST 121; BP_SYST 127; BP_DIAS 55; BP_DIAS 64
[2016-09-25 00:35] LABS: ALBUMIN 3.6 GM/DL (3.2-5.2); ALKALINE PHOSPHATASE 88 U/L (45-117); ALT/SGPT 20 U/L (12-78); ANION GAP 9 MEQ/L (8-16); AST/SGOT 13 U/L (15-37); BILIRUBIN,TOTAL 0.4 MG/DL (0.2-1.0); BLOOD UREA NITROGEN 16 MG/DL (7-18); CALCIUM LEVEL 8.4 MG/DL (8.5-10.1); CARBON DIOXIDE LEVEL 29 MEQ/L (21-32); CHLORIDE LEVEL 104 MEQ/L (98-107); GLUCOSE, FASTING 111 MG/DL (70-105); MAGNESIUM LEVEL 2.1 MG/DL (1.8-2.4); POTASSIUM SERUM 3.5 MEQ/L (3.5-5.1); SODIUM LEVEL 142 MEQ/L (136-145); TOTAL PROTEIN 6.6 GM/DL (6.4-8.2)
[2016-09-25] MEDS ORDERED: POTASSIUM CHLORIDE 10 MEQ SR TABLET PO ONE (01:00)
--- NOTE | 2016-09-25 02:51 | CR ---
DATE OF CONSULTATION: 09/24/2016 CONSULTATION REPORT FOR: Dr. Rodas. PRIMARY CARE PROVIDER: Hunter Vilchis. HISTORY OF PRESENT ILLNESS: This is a 20-year-old male patient with underlying medical history of asthma, depression and with also history of conversion disorder, adjustment disorder, initially admitted to inpatient mental health for suicidal thoughts. Patient having thoughts of jumping in front of a vehicle. Subsequently admitted to inpatient mental health with titration of medication. Earlier today around 10 p.m., after patient has taken trazodone, patient was walking around, subsequently felt lightheaded and nauseated and subsequently was eased onto the floor with reported having blacked out vision and then returned to baseline. Patient was initially orthostatic positive. Repeat orthostatic has been negative. Patient's only other complaint was some lightheadedness and mild nausea, returning to baseline. Denies any vomiting. Was at his baseline state of health. Patient has taken, a couple of days ago, trazodone with no complications, but today the patient was also started on Zoloft earlier in the morning. Patient denies any chest pain, pressure or discomfort, abdominal pain, diarrhea, constipation, is tolerating oral, has good appetite. Denies any fever, chills, coughing, dysuria, hematuria. ALLERGIES: To NICKEL. PAST MEDICAL HISTORY: 1. Asthma. 2. Depression. 3. Adjustment disorder. PAST SURGICAL HISTORY: None. HOME MEDICATIONS: Advair and albuterol. FAMILY HISTORY: Noncontributory. SOCIAL HISTORY: Patient denies smoking or alcoholic drinking. REVIEW OF SYSTEMS: 10-point review of systems negative except for those mentioned in the history of present illness (HPI). PHYSICAL EXAMINATION: VITAL SIGNS: Temperature 99.7, pulse 88, respirations 16, blood pressure 147/73, pulse oximetry 99% on room air. GENERAL: Patient alert and oriented times three, well built, in no acute distress. HEENT: Normocephalic, atraumatic. PULMONARY: Bilaterally clear to auscultation. CARDIAC: Regular rate and rhythm. Normal S1, S2. ABDOMEN: Soft, nontender, nondistended. Positive bowel sounds. EXTREMITIES: No clubbing, cyanosis or edema. NEUROLOGICAL: Cranial nerves II-XII grossly intact. Able to move all four extremities. Orthostatic repeat has been negative. LABORATORY: WBC 7.4, hemoglobin and hematocrit 14.4/40.5, platelets 280. Chemistry: Pending. Lactic acid 1.3. CT head was negative. EKG is pending. ASSESSMENT AND PLAN: This is a 20-year-old male patient with underlying medical history of asthma and also depression, admitted to inpatient mental health for suicidality. Medicine consulted for a syncopal episode. 1. Syncopal episode. Possible etiology includes orthostatic hypotension, medication induced versus infection versus dehydration. Encourage oral intake. Orthostasis has been resolved. Will monitor in the inpatient mental health unit. Recommend discontinue trazodone. If patient's symptom persists, recommend discontinue Zoloft. The Zoloft was recently started this morning and trazodone was given prior to the episode. Followup cardiac enzymes. CT scan was negative. Followup chest x-ray. Followup comprehensive metabolic panel and cardiac enzymes. Lactic acid has been negative. Hemoglobin and hematocrit (H and H) has been negative as well. Will continue to follow. Will get EKG as well. Followup electrolytes. 2. Asthma. Continue current medication. 3. Depression, behavior disorder. Management as per psychiatry. DISPOSITION: Management per primary team.
[2016-09-25 06:21] VITALS: BP 107/55
[2016-09-25] MEDS: SERTRALINE HCL 50 MG TAB PO SCH (08:08)
[2016-09-25] MEDS: ADVAIR DISKUS 100/50 INH PWD INH SCH ×2 (08:09→21:14)
[2016-09-25] MEDS ORDERED: POTASSIUM CHLORIDE 10 MEQ SR TABLET PO SCH (09:00)
[2016-09-25 09:30] VITALS: BP 142/88
--- NOTE | 2016-09-25 09:45 | REP ---
Chest two views HISTORY: Syncope Comparison: 04/19/2016 The lungs are clear. The heart is normal in size. The pulmonary vasculature is normal in appearance. The bony structure is intact. IMPRESSION: No acute disease. Signed by Juan J Drake MD 09/25/2016 09:37 A
[2016-09-25 10:05] VITALS: BP 135/70
--- NOTE | 2016-09-25 14:38 | IPN ---
DATE: 09/25/2016 SUBJECTIVE: This is a 20-year-old male who was seen and examined at bedside. He had a syncopal event overnight which has since resolved. This morning feels a lot better. Still reports episodes of slight dizziness when he changes position suddenly, but no longer reports nausea, chest pain. No shortness of breath, fevers, chills, blurry vision, double vision. OBJECTIVE: VITAL SIGNS: Blood pressure 142/88, heart rate 82, temperature 98.5, respiration rate 22, pulse oximetry 98% on room air. GENERAL: Patient is lying in bed, comfortable, in no acute distress. Alert, awake, oriented times three. Pleasant and cooperative. HEENT: Normocephalic, atraumatic. Moist oral mucosa. Eyes: Extraocular movement intact, pupils equal and reactive to light. NECK: Supple, trachea midline, no jugular venous distention (JVD). CHEST: Symmetric chest rise, no accessory muscle use. Breath sounds were clear to auscultation bilaterally. HEART: Regular rate and rhythm. Normal S1, S2. Did not appreciate murmurs, rubs, or gallops. ABDOMEN: Soft, nontender, nondistended. Bowel sounds present. No guarding, no rebound. EXTREMITIES: No pedal edema. Pedal pulses present bilaterally. NEUROLOGIC: Cranial nerves II-XII grossly intact. Sensory intact. Strength 5/ 5 in all extremities. No focal deficits appreciated. SKIN: No obvious rashes or lesions. LABORATORY DATA: WBC 7.4, hemoglobin 14.4, hematocrit 40.5, platelets 280. Sodium 142, potassium 3.5, chloride 104, carbon dioxide 29, BUN 16, creatinine 0.9, glucose 111, calcium 8.4, magnesium normal. Cardiac markers normal. Urine toxicology screen negative. CT head performed last night was unrevealing for acute changes. Chest xray showed no acute cardiopulmonary disease. IMPRESSION AND PLAN: Mr. Jones is a pleasant 20-year-old male with history of asthma and depression admitted to inpatient mental health unit (IM) for suicidal ideation. Overnight, he was witnessed to have a syncopal episode. 1. Syncope. Likely secondary to medication effect and orthostatic hypotension. Second set of orthostatic blood pressure was negative. Have requested nursing staff to repeat orthostatic vital signs. Continue to increase oral intake and fluid hydration. His trazodone has since been discontinued. Since he is asymptomatic, will continue Zoloft. Prior to admission, patient was not taking any medication aside from his asthma medication. Continue to monitor symptoms closely. 2. Asthma. Continue Advair and Proventil as needed. 3. Adjustment disorder and suicidal ideation. Currently being managed by primary team. My preceptor for this patient encounter was Dr. Vianey Lam. The preceptor was physically present in the building during the encounter and was fully available. As needed, all aspects of the patient interview, examination, medical decision making process, and medical care plan development were reviewed and approved by the preceptor. The preceptor is aware and concurs with the plan as stated in the body of this note and will attest to such by his cosignature. JANINA
[2016-09-25 16:00] VITALS: BP_SYST 133; BP_SYST 136; BP_DIAS 75; BP_DIAS 79; BP_DIAS 82
--- NOTE | 2016-09-25 17:25 | IPNPDOC ---
[facility] Progress Note Progress Note DATE OF SERVICE: 09/25/16 mET WITH 20 YEAR OLD MALE WITH HISTORY OF NEW TEST RESULTS: . CURRENT MEDICATIONS: See below. MENTAL STATUS EXAMINATION: Patient is a -year old male, who is . Speech: Is . Language skills are . Thought processes including: . Thought content: . Abstract reasoning, and computation: . Description of associations: . Description of abnormal or psychotic thoughts: . Judgment: . Insight: [very limited, good, fair. poor]. Orientation: . Recent and remote memory: . Attention span and concentration: . Language: . Fund of knowledge: . Mood: . Affect: . DIAGNOSES: 1. . 2. . 3. . ASSESSMENT: MANAGEMENT PLAN: . TIME SPENT: minutes. Vital Signs Vital Signs Date Time Temp Pulse Resp B/P Pulse Ox O2 Delivery O2 Flow Rate FiO2 09/25/16 10:05 80 16 135/70 98 Room Air 09/25/16 09:30 98.5 Laboratory Data 24H Labs Laboratory Tests 2 09/24/16 23:17: Blood Urea Nitrogen 16, Creatinine 0.90, Sodium Level 142, Potassium Level 3.5, Chloride Level 104, Carbon Dioxide Level 29, Calcium Level 8.4L, Aspartate Amino Transf (AST/SGOT) 13L, Alanine Aminotransferase (ALT/SGPT) 20, Total Creatine Kinase 79, Alkaline Phosphatase 88, Total Bilirubin 0.4, Total Protein 6.6, Albumin 3.6, Albumin/Globulin Ratio 1.20, Anion Gap 9, White Blood Count 7.4, Red Blood Count 4.70, Hemoglobin 14.4, Hematocrit 40.5L, Mean Corpuscular Volume 86.2, Mean Corpuscular Hemoglobin 30.6, Mean Corpuscular Hemoglobin Concent 35.5, Red Cell Distribution Width 11.5, Platelet Count 280, Neutrophils (%) (Auto) 52.2, Lymphocytes (%) (Auto) 39.3, Monocytes (%) (Auto) 4.3, Eosinophils (%) (Auto) 2.1, Basophils (%) (Auto) 0.6, Neutrophils # (Auto) 3.9, Lymphocytes # (Auto) 3.0, Monocytes # (Auto) 0.3, Eosinophils # (Auto) 0.2, Basophils # (Auto) 0.0, C-Reactive Protein, Quantitative < 0.30, Creatine Kinase MB < 1.0, Creatine Kinase MB Relative Index 1.26, Lactic Acid Level 1.3, Large Unclassified Cells # 0.1, Large Unclassified Cells % 1.6, Magnesium Level 2.1, Troponin I < 0.02 09/25/16 07:29: Total Creatine Kinase 86, Creatine Kinase MB 1.0, Creatine Kinase MB Relative Index 1.16, Troponin I < 0.02 CBC/BMP Laboratory Tests 09/24/16 23:17 Calcium Level 8.4 L, Aspartate Amino Transf (AST/SGOT) 13 L, Alanine Aminotransferase (ALT/SGPT) 20, Total Creatine Kinase 79, Alkaline Phosphatase 88, Total Bilirubin 0.4, Total Protein 6.6, Albumin 3.6, Red Blood Count 4.70, Mean Corpuscular Volume 86.2, Mean Corpuscular Hemoglobin 30.6, Mean Corpuscular Hemoglobin Concent 35.5, Red Cell Distribution Width 11.5, Neutrophils (%) (Auto) 52.2, Lymphocytes (%) (Auto) 39.3, Monocytes (%) (Auto) 4.3, Eosinophils (%) (Auto) 2.1, Basophils (%) (Auto) 0.6, Neutrophils # (Auto) 3.9, Lymphocytes # (Auto) 3.0, Monocytes # (Auto) 0.3, Eosinophils # (Auto) 0.2 , Basophils # (Auto) 0.0 Current Medications Current Medications Acetaminophen (Tylenol Tab) 650 mg Q6HP PRN PO HEADACHE or DISCOMFORT; Start at 13:45; Stop 10/17/16 at 13:44 Al Hydrox/Mg Hydrox/Simethicone (Mylanta) 30 ml Q4HP PRN PO HEARTBURN/ INDIGESTION; Start 09/17/16 at 13:45; Stop 10/17/16 at 13:44 Albuterol Sulfate (Proventil, Ventolin Hfa) 2 puff DAILY INH Last administered on 09/16/16t 09:09; Start 09/16/16 at 09:00; Stop 09/16/16 at 23:42; Status DC Albuterol Sulfate (Proventil, Ventolin Hfa) 2 puff Q6HP PRN INH SHORTNESS OF BREATH; Start 09/16/16 at 23:45; Stop 10/16/16 at 23:44 Home Med (Med Rec Complete!) ASDIRECTED XX ; Start 09/15/16 at 15:15; Stop at 15:15; Status DC Hydroxyzine HCl (Atarax) 50 mg Q6HP PRN PO ANXIETY/AGITATION Last administered on 09/23/16 16:09; Start 09/20/16 at 10:15; Stop 10/20/16 at 10:14 Magnesium Hydroxide (Milk Of Magnesia) 30 ml DAILYPRN PRN PO CONSTIPATION; Start 09/17/16 at 13:45; Stop 10/17/16 at 13:44 Potassium Chloride (Micro-K Extencaps) 40 meq DAILY PO ; Start 09/25/16 at 09:00 ; Stop 09/25/16 at 09:00; Status DC Salmeterol Xinafoate/ Fluticasone (Advair Diskus 100/50) 1 puff BID INH Last administered on 09/25/16 08:09; Start 09/15/16 at 21:00; Stop 10/15/16 at 20:59 Sertraline HCl (Zoloft) 25 mg QAM PO Last administered on 09/22/16 08:08; Start 09/20/16 at 09:00; Stop 09/22/16 at 16:30; Status DC Sertraline HCl (Zoloft) 50 mg QAM PO Last administered on 09/23/16 08:51; Start 09/23/16 at 09:00; Stop 09/23/16 at 09:00; Status DC Sertraline HCl (Zoloft) 50 mg QAM PO Last administered on 09/25/16 08:08; Start 09/23/16 at 09:00; Stop 10/23/16 at 08:59 Trazodone HCl (Desyrel) 50 mg QHSP PRN PO INSOMNIA Last administered on 22:58; Start 09/17/16 at 13:45; Stop 09/19/16 at 15:07; Status DC Trazodone HCl (Desyrel) 100 mg QHSP PRN PO INSOMNIA Last administered on 21:41; Start 09/19/16 at 15:15; Stop 09/24/16 at 23:12; Status DC Allergies Coded Allergies: Nickel (Verified Allergy, Unknown, 05/02/16) TRINY CAMPA MD Sep 25, 2016 17:25
[2016-09-26 00:15] VITALS: BP_SYST 110; BP_SYST 115; BP_SYST 117; BP_DIAS 58; BP_DIAS 75; BP_DIAS 76
[2016-09-26 06:40] VITALS: BP_SYST 146; BP_SYST 150; BP_SYST 158; BP_DIAS 74; BP_DIAS 76; BP_DIAS 83
[2016-09-26] MEDS: ADVAIR DISKUS 100/50 INH PWD INH SCH ×2 (08:03→20:59)
[2016-09-26] MEDS: SERTRALINE HCL 50 MG TAB PO SCH (08:03)
[2016-09-26 08:39] VITALS: BP_SYST 139; BP_SYST 140; BP_DIAS 80; BP_DIAS 84; BP_DIAS 87
--- NOTE | 2016-09-26 17:11 | IPNPDOC ---
[facility] Progress Note Progress Note DATE OF SERVICE: 09/26/16 Progress note Evaluated 20-year-old male who was admitted for suicidal ideation, wanting to walk in traffic. He had a history of cutting his abdominal area and he said that previously he had her one voice calling out his name but that he didn't feel scared when he heard his voice and it was not commanding him to harm himself or others. He attributed his symptoms to the stress related to the [employer] and he said that sometimes he has nightmares about bugs,, gigantic bugs. He has been treated for conversion disorder previously at [facility] because he has dizzy episodes and then he faints. Over the weekend he had one of those episodes and he has been only on 2 different medications which were trazodone and Zoloft. Trazodone was discontinued for that reason and he was left on Zoloft. He is also taking Atarax when necessary for anxiety or agitation. He has been stable and he is in a brighter mood, he denies suicidal thoughts, denies homicidal thoughts, denies auditory or visual hallucinations, denies thought insertion, denies obsessions, denies phobias, denies compulsions, and denies having suicidal or homicidal plan. 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 He says that he will be discharged for having a medical condition and he will relocate. He wants to go back to school and get on with his life. He is goal oriented, and has plans for the future. CURRENT MEDICATIONS: See below. DIAGNOSES: 1. Adjustment disorder 2. Suicidal Ideation 3. Conversion Disorder by history. ASSESSMENT:patient is ready to be discharged, he is stable. MANAGEMENT PLAN: Will continue treatment as an outpatient TIME SPENT: 25 minutes. Vital Signs Vital Signs Date Time Temp Pulse Resp B/P Pulse Ox O2 Delivery O2 Flow Rate FiO2 09/26/16 08:39 75 139/80 86 139/84 102 140/87 09/25/16 10:05 16 98 Room Air 09/25/16 09:30 98.5 Current Medications Current Medications Acetaminophen (Tylenol Tab) 650 mg Q6HP PRN PO HEADACHE or DISCOMFORT; Start at 13:45; Stop 10/17/16 at 13:44 Al Hydrox/Mg Hydrox/Simethicone (Mylanta) 30 ml Q4HP PRN PO HEARTBURN/ INDIGESTION; Start 09/17/16 at 13:45; Stop 10/17/16 at 13:44 Albuterol Sulfate (Proventil, Ventolin Hfa) 2 puff DAILY INH Last administered on 09/16/16 09:09; Start 09/16/16 at 09:00; Stop 09/16/16 at 23:42; Status DC Albuterol Sulfate (Proventil, Ventolin Hfa) 2 puff Q6HP PRN INH SHORTNESS OF BREATH; Start 09/16/16 at 23:45; Stop 10/16/16 at 23:44 Home Med (Med Rec Complete!) ASDIRECTED XX ; Start 09/15/16 at 15:15; Stop at 15:15; Status DC Hydroxyzine HCl (Atarax) 50 mg Q6HP PRN PO ANXIETY/AGITATION Last administered on 09/23/16 16:09; Start 09/20/16 at 10:15; Stop 10/20/16 at 10:14 Magnesium Hydroxide (Milk Of Magnesia) 30 ml DAILYPRN PRN PO CONSTIPATION; Start 09/17/16 at 13:45; Stop 10/17/16 at 13:44 Potassium Chloride (Micro-K Extencaps) 40 meq DAILY PO ; Start 09/25/16 at 09:00 ; Stop 09/25/16 at 09:00; Status DC Salmeterol Xinafoate/ Fluticasone (Advair Diskus 100/50) 1 puff BID INH Last administered on 09/26/16 08:03; Start 09/15/16 at 21:00; Stop 10/15/16 at 20:59 Sertraline HCl (Zoloft) 25 mg QAM PO Last administered on 09/22/16 08:08; Start 09/20/16 at 09:00; Stop 09/22/16 at 16:30; Status DC Sertraline HCl (Zoloft) 50 mg QAM PO Last administered on 09/23/16 08:51; Start 09/23/16 at 09:00; Stop 09/23/16 at 09:00; Status DC Sertraline HCl (Zoloft) 50 mg QAM PO Last administered on 09/26/16 08:03; Start 09/23/16 at 09:00; Stop 10/23/16 at 08:59 Trazodone HCl (Desyrel) 50 mg QHSP PRN PO INSOMNIA Last administered on 22:58; Start 09/17/16 at 13:45; Stop 09/19/16 at 15:07; Status DC Trazodone HCl (Desyrel) 100 mg QHSP PRN PO INSOMNIA Last administered on 21:41; Start 09/19/16 at 15:15; Stop 09/24/16 at 23:12; Status DC Allergies Coded Allergies: Nickel (Verified Allergy, Unknown, 05/02/16) TRINY CAMPA MD Sep 26, 2016 17:11
[2016-09-26 17:21] VITALS: BP_SYST 134; BP_SYST 136; BP_DIAS 78; BP_DIAS 80
--- NOTE | 2016-09-26 19:08 | ECGEPIP ---
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
--- NOTE | 2016-09-26 20:49 | ECHO ---
DATE OF PROCEDURE: 09/26/2016 REFERRING PHYSICIAN: Dr. Barbara Mittal PATIENT LOCATION: Room 2106 REASON FOR ECHOCARDIOGRAM: Syncope. 2D MEASUREMENTS: IVS: ____ LV: ____ LVPW: ____ LA: Aorta: DOPPLER MEASUREMENTS: Peak velocity across the aortic valve: Peak velocity across the LVOT: ____ Mitral E: , Mitral A: , with a ratio of ____ Maximum tricuspid valve velocity: 2D COMMENTS: 1. Normal left ventricular size, wall thickness and normal global left ventricular systolic function. The estimated global left ventricular systolic function is 65%. 2. Normal left atrium. Normal right atrium and right ventricle. 3. The atrial septum appeared to be normal without evidence of defect or shunt. 4. Normal aortic root. 5. No pericardial effusion seen. 6. Normal aortic valve. There is minimal bowing of the mitral valve leaflets towards the left atrium but no definite mitral valve prolapse. Normal tricuspid valve and pulmonic valve. The proximal pulmonary artery branches appeared to be normal. 7. The inferior vena cava was normal in size, central venous pressure is most likely normal. DOPPLER: It detects trace mitral regurgitation and trace to mild tricuspid regurgitation. The calculated pulmonary artery systolic pressure was normal, less than 30 mmHg. IMPRESSION: 1. Normal global left ventricular systolic function. Left ventricular diastolic function also appeared to be normal. 2. Trace mitral regurgitation with possible minimal prolapse of the mitral valve leaflets. 3. Trace to mild tricuspid regurgitation with a normal calculated pulmonary artery systolic pressure. 4. The above findings were compared to last echocardiogram on 03/30/2016, there are no remarkable changes.
[2016-09-27 06:21] VITALS: BP 129/71
--- NOTE | 2016-09-27 08:32 | IPN ---
DATE: 09/26/2016 SUBJECTIVE: This is a 20-year-old male who was seen and examined in inpatient mental health unit ([facility]). Yesterday, he had an episode of palpitations but at that time was attributing it to being anxious and having a panic attack. Still reports intermittent dizziness and nausea, though no longer had a syncopal episode. Denies and chest pain, shortness of breath, fevers chills, night sweats or vision changes. OBJECTIVE: VITAL SIGNS: Blood pressure 139/80, temperature 98.7, respiration rate 20, pulse ox 99% on room air. Orthostatic vital signs are negative. GENERAL: The patient is sitting in the chair, comfortable, in no acute distress. He is alert, awake, oriented times three, pleasant, cooperative. HEENT: Normocephalic, atraumatic. Moist oral mucosa. EYES: Extraocular muscles intact. Pupils equal, round, reactive to light. NECK: Supple. Trachea midline. CHEST: Symmetric chest. No accessory muscle use. Breath sounds clear to auscultation bilaterally. HEART: Regular rate and rhythm. S1, S2 present with normal S1, S2. ABDOMEN: Soft, nontender, nondistended. Positive bowel sounds. No guarding. No rebound. EXTREMITIES: No pedal edema. Pedal pulses present bilaterally. NEURO: No focal deficits appreciated. Strength 5/5 in all extremities Sensory intact. SKIN: No obvious rashes or lesions. PSYCHIATRIC: Cooperative. Normal affect. LABORATORY DATA: No new labs. IMPRESSION AND PLAN: Mr. Jones is a 20-year-old male with history of asthma and depression admitted to [facility] for suicidal ideation. He recently has had a syncopal episode. 1. Syncope: Likely secondary to orthostatic hypotension and medication effect. His orthostatic hypotension has now resolved. Unfortunately, he still reports occasional episodes of dizziness and also had an episode of palpitation yesterday. Will followup with EKG and have also ordered echocardiogram for further investigation. In the meantime, continue holding trazodone. He may continue his Zoloft as he appears to be tolerating it well. Continue to monitor closely. 2. Asthma: Continue Advair and Proventil as needed. 3. Adjustment disorder and suicidal ideation: Currently being managed by primary team. My preceptor for this patient encounter was Dr. Bruce Fong. The preceptor was physically present in the building during the encounter and was fully available. As needed, all aspects of the patient interview, examination, medical decision making process, and medical care plan development were reviewed and approved by the preceptor. The preceptor is aware and concurs with the plan as stated in the body of this note and will attest to such by his/her cosignature. JANINA
[2016-09-27] MEDS: SERTRALINE HCL 50 MG TAB PO SCH (09:10)
[2016-09-27] MEDS: ADVAIR DISKUS 100/50 INH PWD INH SCH (09:10)
[2016-09-27] MEDS ORDERED: SERT50TA PO (10:46)
[2016-09-27] MEDS ORDERED: HYDRO50TAB PO (10:46)
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
--- NOTE | 2016-09-27 17:13 | IPN ---
DATE: 09/27/2016 SUBJECTIVE: This is a 20-year-old male who was seen and examined in inpatient mental health unit. Overnight, no reported acute events. This morning, continues to feel better compared to previous visits. Denies any chest pain, shortness of breath, palpitations, fevers, chills. Still has some nausea, most significant with food, but he does try to make himself eat. No blurred vision, double vision, paresthesias, paralysis. OBJECTIVE: VITAL SIGNS: Blood pressure 129/71, heart rate 62, temperature 98.1, respiration rate 14, pulse oximetry is not documented. GENERAL: The patient is sitting in a chair comfortable. No acute distress. He is alert, awake, oriented times three. Pleasant, cooperative. HEENT: Normocephalic, atraumatic. Moist oral mucosa. Eyes: Extraocular movements intact. NECK: Supple. Trachea midline. No jugular venous distention (JVD). CHEST: Symmetric chest rise. No accessory muscle use. Breath sounds are clear to auscultation bilaterally. HEART: Regular rate and rhythm. Normal S1, S2. ABDOMEN: Soft, nontender, nondistended. Bowel sounds present. No guarding. No rebound. EXTREMITIES: No pedal edema. Pedal pulses present bilaterally. LABORATORY DATA: Not documented. EKG showed sinus rhythm with short AL interval, similar tracing compared to admission, borderline right axis deviation. Echocardiogram showed normal global ventricular systolic function, left ventricular diastolic function normal. Trace mitral regurgitation with possible minimal prolapse of mitral valve leaflet with trace to mild tricuspid regurgitation with normal calculated pulmonary artery systolic pressure. Findings were not remarkably changed compared to echo from March 2016. IMPRESSION/PLAN: Mr. Jones is a 20-year-old male with a history of depression, admitted to inpatient mental health unit for suicidal ideation and was found to have a syncopal event while in [facility]. 1. Syncope. Resolved. Likely secondary to orthostatic hypotension and effect of trazodone. His orthostatic hypotension has since resolved. EKG and echocardiogram are as mentioned above. Because echocardiogram showed mild mitral valve prolapse, we recommend that the patient followup with cardiology for further monitoring. 2. Asthma. Continue with Advair and Proventil. 3. Adjustment disorder and suicidal ideation. Currently, he is being managed by primary team. Due to the patient resolved syncopal events and resolved orthostatic, we will sign off at this time. However, we will recommend that the patient followup with cardiology for monitoring regarding his possible finding of mitral valve prolapse on echocardiogram. My preceptor for this patient encounter was Dr. Fong. The preceptor was physically present in the building during the encounter and was fully available. As needed, all aspects of the patient interview, examination, medical decision making process, and medical care plan development were reviewed and approved by the preceptor. The preceptor is aware and concurs with the plan as stated in the body of this note and will attest to such by his/her cosignature. cc: Hunter Vilchis, [facility]
== END 2016-09-27 13:50 | disposition home or self-care (01) | DRG 882 ==
LOC: M ED 12:47 → M ED INP 14:31 → M PSY 17:07
PROVIDERS: ADMIT Psychiatry & Neurology Psychiatry; ATTEND Psychiatry & Neurology Psychiatry
DX: F43.22 Adjustment disorder with anxiety (principal); Z68.1 Body mass index [BMI] 19.9 or less, adult; R45.851 Suicidal ideations; F44.9 Dissociative and conversion disorder, unspecified; F43.10 Post-traumatic stress disorder, unspecified; J45.909 Unspecified asthma, uncomplicated; R55 Syncope and collapse; I36.0 Nonrheumatic tricuspid (valve) stenosis

== ENCOUNTER 2016-10-16 02:07 | Inpatient (IN) | payer OTHER ==
[~2016-10-16] VITALS: Ht 175.3 cm; Wt 55.8 kg
[~2016-10-16 02:07] MED LIST: ADV100INH INH; ALBU17IN2 INH; HYDRO50TAB PO; SERT50TA PO
[2016-10-16] MEDS ORDERED: IBUP200C PO (02:23)
[2016-10-16] MEDS ORDERED: OXYC1TAB23 PO (02:23)
[2016-10-16 03:54] LABS: MEAN CORPUSCULAR HEMOGLOBIN 30.5 pg (27.0-33.0); MEAN CORPUSCULAR HGB CONC 34.7 g/dl (32.0-36.5); MEAN CORPUSCULAR VOLUME 87.8 fl (80.0-96.0); RED CELL DISTRIBUTION WIDTH 11.6 % (11.5-14.5); WHITE BLOOD COUNT 7.1 K/mm3 (4.0-10.0)
[2016-10-16 04:15] LABS: METHADONE URINE NEGATIVE (NEGATIVE)
[2016-10-16 04:24] LABS: ALBUMIN 3.5 GM/DL (3.2-5.2); ALBUMIN/GLOBULIN RATIO 1.09 (1.00-1.93); ALKALINE PHOSPHATASE 82 U/L (45-117); ALT/SGPT 18 U/L (12-78); ANION GAP 6 MEQ/L (8-16); AST/SGOT 10 U/L (15-37); BILIRUBIN,DIRECT 0.1 MG/DL (0.0-0.2); BILIRUBIN,TOTAL 0.5 MG/DL (0.2-1.0); BLOOD UREA NITROGEN 17 MG/DL (7-18); CARBON DIOXIDE LEVEL 31 MEQ/L (21-32); CHLORIDE LEVEL 103 MEQ/L (98-107); GLUCOSE, FASTING 87 MG/DL (70-105); POTASSIUM SERUM 4.3 MEQ/L (3.5-5.1); SODIUM LEVEL 140 MEQ/L (136-145); TOTAL PROTEIN 6.7 GM/DL (6.4-8.2)
--- NOTE | 2016-10-16 06:52 | ECGEPIP ---
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
[2016-10-16] MEDS ORDERED: SERTRALINE HCL 50 MG TAB PO ONE (08:30)
[2016-10-16] MEDS ORDERED: ADVAIR DISKUS 100/50 INH PWD INH ONE (09:00)
[2016-10-16] MEDS ORDERED: SERT50TA PO (16:23)
[2016-10-16] MEDS ORDERED: HYDR-4274 PO (16:24)
[2016-10-16 17:08] VITALS: BP 138/83
[2016-10-16] MEDS ORDERED: ACETAMINOPHEN TAB 650MG DOSE (2X325MG) PO PRN (17:45)
[2016-10-16] MEDS ORDERED: MOM 30ML SUSPENSION UDC PO PRN (17:45)
[2016-10-16] MEDS ORDERED: MAALOX 30 ML SUSP *UDC PO PRN (17:45)
[2016-10-16] MEDS: ADVAIR DISKUS 100/50 INH PWD INH SCH (21:53)
[2016-10-17 06:25] VITALS: BP 116/58
[2016-10-17] MEDS: ADVAIR DISKUS 100/50 INH PWD INH SCH ×2 (08:36→21:09)
[2016-10-17] MEDS: SERTRALINE HCL 25 MG TABLET PO SCH (08:36)
[2016-10-17] MEDS ORDERED: VENLAFAXINE **XR** 37.5 MG CAPSULE PO SCH (09:00)
--- NOTE | 2016-10-17 09:53 | HPEPDOC ---
Medical History and Physical Date of Admission October 16, 2016 at 16:02 History and Physical PCP: [facility] ATTENDING: Dr. Eric Davis HPI: 20 yo M admitted to [facility] for unspecified depressive disorder, being medically examined today. No acute medical complaints today. Denies any fevers, chills, weakness, fatigue, DUMONT, CP, SOB, cough, palpitations, abdominal pain, N/V /D or changes in bowel or bladder habits. 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 ETOH: Denies Illicit Drugs: Denies IV Drug Use: Denies Tattoos done unprofessionally: Denies FAMHX: Mother: Alive, well Father: Alive, well Siblings: 4 sisters, 2 brothers Alive. one sister with history of nephrotic syndrome. Children: None Unexpected deaths due to medical reasons: None. ROS: As noted in HPI, otherwise 11pt ROS of systems reviewed and unremarkable. PE: GEN: 20 yo M, appears stated age. Well-nourished, well developed. No acute distress. Alert and oriented x 3. Pleasant, interactive. HEENT: Normocephalic, atraumatic. Pupils are equal, round, and reactive to light. Extraocular movements are intact. No nystagmus appreciated. Sclera are nonicteric. Conjunctiva without injection. Nose midline. Nasal turbinates without bogginess. EACs both patent BL. TMs both visualized and sarmiento with good cone of light, no bulging or erythema. No facial asymmetry. Moist mucous membranes. Dentition fair. Pharynx pink and moist, no cobblestoning. Neck supple , trachea midline. No lymphadenopathy or thyromegaly appreciated. CHEST: Regular rate and rhythm, +S1, +S2 LUNGS: Clear to auscultation bilaterally. No wheezes, rales, or rhonchi. Breathing appears symmetric and easy. Patient is speaking in full sentences. No accessory muscle use. ABD: Round, soft, non-tender, non-distended. +Bowel sounds throughout. No rebound or guarding. No costovertebral angle tenderness. EXT: Pulses 2+ bilaterally dorsalis pedis and radial. No lower extremity edema appreciated. SKIN: [place], dry, warm. Capillary refill <2sec. No rashes. NEURO: Alert and oriented x 3. Cranial nerves III-XII are intact. No focal deficits appreciated. EK10/16/16 SINUS BRADYCARDIA 58 BPM WITH SINUS ARRHYTHMIA WITH SHORT [place] INTERVAL SIMILAR TO 09/26/16 A&P: 20 yo M admitted to [facility] for unspecified depressive disorder 1. Psych. Plan per Psychiatry. EKG on file. 2. Nicotine dependence. Patch available. 3. Asthma. Continue Advair 100/50 one puff twice a day. Albuterol 2 puffs every 4 hours as needed. 4. Follow up with PCP on discharge. 5. Van safety aid present throughout exam. Vital Signs Vital Signs Date Time Temp Pulse Resp B/P (MAP) Pulse Ox O2 Delivery O2 Flow Rate FiO2 10/17/16 06:25 98.0 75 16 116/58 (77) 10/16/16 17:08 Room Air 10/16/16 16:45 100 Laboratory Data Labs 24H Item Value Date Time White Blood Count 7.1 K/mm3 10/16/16345 Red Blood Count 4.78 M/mm3 10/16/16345 Hemoglobin 14.6 g/dl 10/16/16345 Hematocrit 42.0 % 10/16/16 034 Mean Corpuscular Volume 87.8 fl 10/16/16345 Mean Corpuscular Hemoglobin 30.5 pg 10/16/16345 Mean Corpuscular Hemoglobin Concent 34.7 g/dl 10/16/16345 Red Cell Distribution Width 11.6 % 10/16/16 034 Platelet Count 295 k/mm3 10/16/16 0346 Sodium Level 140 MEQ/L 10/16/16345 Potassium Level 4.3 MEQ/L 10/16/16345 Chloride Level 103 MEQ/L 10/16/16345 Carbon Dioxide Level 31 MEQ/L 10/16/16 034 Anion Gap 6 MEQ/L L 10/16/16345 Blood Urea Nitrogen 17 MG/DL 10/16/16345 Creatinine 0.90 MG/DL 10/16/16345 Fasting Glucose 87 MG/DL 5/8345 Calcium Level 8.0 MG/DL L 10/16/16345 Total Bilirubin 0.5 MG/DL 10/16/16345 Direct Bilirubin 0.1 MG/DL 10/16/16345 Aspartate Amino Transf (AST/SGOT) 10 U/L L 10/16/16345 Alanine Aminotransferase (ALT/SGPT) 18 U/L 10/16/16345 Alkaline Phosphatase 82 U/L 10/16/16345 Total Protein 6.7 GM/DL 10/16/16345 Albumin 3.5 GM/DL 10/16/16345 Albumin/Globulin Ratio 1.09 10/16/16345 Thyroid Stimulating Hormone (TSH) 1.000 uIU/ML 10/16/16345 Salicylates Level < 1.7 MG/DL L 10/16/16345 Urine Opiates Screen NEGATIVE 10/16/16345 Urine Methadone Screen NEGATIVE 10/16/16345 Acetaminophen Level 2.4 UG/ML L 10/16/16345 Urine Barbiturates Screen NEGATIVE 10/16/16345 Urine Phencyclidine Screen NEGATIVE 10/16/16345 Urine Amphetamines Screen NEGATIVE 10/16/16345 Urine Benzodiazepines Screen NEGATIVE 10/16/16345 Urine Cocaine Metabolite Screen NEGATIVE 10/16/16345 Urine Cannabinoids Screen NEGATIVE 10/16/16345 Ethyl Alcohol Level < 0.003 % 10/16/16345 Home Medications Scheduled Albuterol Sulfate (Proventil Hfa) 167 Puff/6.7 Gm Aers, 2 PUFFS INH DAILY for SHORTNESS OF BREATH Salmeterol/Fluticasone (Advair Diskus 100-50 Mcg/Dose) 28 Puff/Inhaler Aerp, 1 PUFF INH BID for ASTHMA Sertraline Hcl (Sertraline HCl) 50 Mg Tab, 50 MG PO DAILY Scheduled PRN Hydroxyzine HCl (Hydroxyzine HCl) 50 Mg Tab, 50 MG PO Q6H PRN for ANXIETY Ibuprofen (Ibuprofen) 200 Mg Cap, 800 MG PO Q6HP PRN for PAIN OR FEVER Oxycodone/Acetaminophen (Oxycodone/Acetaminophen 5-325 mg) 1 Tab Tab, 1 TAB PO Q6HP PRN for PAIN Allergies Coded Allergies: Nickel (Verified Allergy, Unknown, 05/02/16) Maritza Hoffman October 17, 2016 09:53
[2016-10-17] MEDS ORDERED: ALBUTEROL 90 MCG/ACT 8GM HFA INHALER INH PRN (10:00)
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
[2016-10-17 18:31] VITALS: BP 116/67
[2016-10-17] MEDS: traZODone 25MG PER 1/2 TABLET PO SCH (21:09)
[2016-10-18 06:15] VITALS: BP 108/58
[2016-10-18] MEDS: SERTRALINE HCL 25 MG TABLET PO SCH (09:40)
[2016-10-18] MEDS: ADVAIR DISKUS 100/50 INH PWD INH SCH ×2 (09:40→20:54)
[2016-10-18] MEDS ORDERED: VENLAFAXINE **XR** 37.5 MG CAPSULE PO ONE (09:45)
[2016-10-18 18:00] VITALS: BP 121/76
[2016-10-18] MEDS: traZODone 25MG PER 1/2 TABLET PO SCH (20:54)
[2016-10-19 06:36] VITALS: BP 96/53
[2016-10-19] MEDS: VENLAFAXINE **XR** 75MG CAPSULE PO SCH (08:40)
[2016-10-19] MEDS: ADVAIR DISKUS 100/50 INH PWD INH SCH ×2 (08:40→22:35)
[2016-10-19] MEDS: SERTRALINE HCL 25 MG TABLET PO SCH (08:40)
--- NOTE | 2016-10-19 11:10 | IPN ---
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 SUBJECTIVE: "I am feeling about the same". OBJECTIVE: No major changes from yesterday. The patient was able to sleep a little better with the help of trazodone. The patient denies any side effects. Continues significantly depressed with psychomotor reservation and very low interaction with other staff. No evidence of psychotic symptoms. MENTAL STATUS EXAMINATION: The patient is dressed in [facility]. The patient is cooperative during the interview. Has poor eye contact. Speech is soft and monotone. Mood is depressed and anxious. Affect is restricted. No delusions or hallucinations. Memory fair. Patient is fully oriented. Concentration is intact. Thinking is logical. Though content is appropriate. The patient is able to contract for safety in our unit. Insight and judgment is limited. ASSESSMENT: 1. Depressive disorder. 2. Conversion disorder. PLAN: 1. Effexor XR 275 mg by mouth every morning. 2. Continue trazodone 25 mg by mouth nightly. 3. Taper citrulline slowly and discontinue. 4. Continue medication management, individual and group therapy.
[2016-10-19 18:00] VITALS: BP 127/58
--- NOTE | 2016-10-19 22:17 | IPN ---
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 SUBJECTIVE: "I was able to sleep better." OBJECTIVE: Patient continues depressed with sad, restricted facial expression and psychomotor retardation. However, patient is getting out of the room more often, although there is very little interaction with other patients. There is no evidence of psychotic symptoms, no auditory or visual hallucinations or delusions. Patient is tolerating well the medication. MENTAL STATUS EXAMINATION: Patient is dressed in [facility]. Patient is cooperative during the interview. Has poor eye contact. His speech is soft and monotone. Mood is depressed and anxious. Affect is restricted. No delusions or hallucinations. Memory is fair. Patient is fully oriented. Associations are intact. Thinking is logical. Thought content is appropriate. Patient is able to contract for safety. Insight and judgment is limited. ASSESSMENT: Major depressive disorder. PLAN: 1. Continue Effexor XR 75 mg by mouth every morning. 2. Continue trazodone 25 mg by mouth nightly. 3. Taper sertraline slowly and discontinue. 4. Continue medication management, individual and group therapy.
[2016-10-19] MEDS: traZODone 25MG PER 1/2 TABLET PO SCH (22:35)
[2016-10-20 06:15] VITALS: BP 101/58
[2016-10-20] MEDS: VENLAFAXINE **XR** 75MG CAPSULE PO SCH (08:22)
[2016-10-20] MEDS: ADVAIR DISKUS 100/50 INH PWD INH SCH ×2 (08:22→22:29)
[2016-10-20] MEDS: SERTRALINE HCL 25 MG TABLET PO SCH (08:22)
[2016-10-20 18:00] VITALS: BP 135/79
--- NOTE | 2016-10-20 21:01 | IPN ---
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 SUBJECTIVE: "I'm feeling better." OBJECTIVE: The patient is improving slowly. Continues depressed but is able to interact with other patients and staff. His facial expression has improved as has his psychomotor retardation. The patient has no side effect from the medication and is mckenzie for safety during the interview. There is no evidence of psychotic symptoms. MENTAL STATUS EXAMINATION: The patient is dressed in [facility]. The patient is cooperative during the interview. Has fair eye contact. The speech is clear. Normal is grade, volume and articulation. Mood is depressed and anxious but improving. Affect is congruent with mood. There is no evidence of delusions or hallucinations. Memory is fair. The patient is fully oriented. Associations are intact. Thinking is logical. Thought content is appropriate. The patient is able to contract for safety and denies suicidal or homicidal ideations during the interview. Insight and judgment are fair. ASSESSMENT: Major depressive disorder. PLAN: 1. Continue Effexor XR 75 mg by mouth every morning. 2. Continue trazodone 25 mg by mouth at bedtime. 3. Decrease sertraline to 50 mg by mouth daily. 4. Continue medication management, individual and group therapy.
[2016-10-20] MEDS: traZODone 25MG PER 1/2 TABLET PO SCH (22:29)
[2016-10-21 06:38] VITALS: BP 140/66
[2016-10-21] MEDS: ADVAIR DISKUS 100/50 INH PWD INH SCH ×2 (08:12→22:36)
[2016-10-21] MEDS: VENLAFAXINE **XR** 75MG CAPSULE PO SCH (08:12)
[2016-10-21] MEDS: SERTRALINE HCL 50 MG TAB PO SCH (08:12)
[2016-10-21 18:00] VITALS: BP 113/59
[2016-10-21] MEDS: traZODone 25MG PER 1/2 TABLET PO SCH (22:36)
[2016-10-22 06:22] VITALS: BP 120/63
[2016-10-22] MEDS: ADVAIR DISKUS 100/50 INH PWD INH SCH ×2 (09:03→20:04)
[2016-10-22] MEDS: SERTRALINE HCL 50 MG TAB PO SCH (09:04)
[2016-10-22] MEDS: VENLAFAXINE **XR** 75MG CAPSULE PO SCH (09:04)
[2016-10-22 18:00] VITALS: BP 108/58
[2016-10-22] MEDS: traZODone 25MG PER 1/2 TABLET PO SCH (20:04)
[2016-10-23 06:27] VITALS: BP 118/59
[2016-10-23] MEDS: SERTRALINE HCL 50 MG TAB PO SCH (08:16)
[2016-10-23] MEDS: VENLAFAXINE **XR** 75MG CAPSULE PO SCH (08:16)
[2016-10-23] MEDS: ADVAIR DISKUS 100/50 INH PWD INH SCH ×2 (08:16→22:12)
--- NOTE | 2016-10-23 16:22 | IPN ---
DATE: 10/23/2016 HISTORY: A 20-year-old male with history of depression admitted with suicidal ideation. SUBJECTIVE: "I'm feeling much better." OBJECTIVE: The patient has significantly improved from admission. Patient is interacting better with other patients and staff. Patient reports relief from symptoms of depression. Has no side effects from the medication. The patient is requesting to be discharged. We discussed these issues and will scheduled a chain of command meeting for tomorrow. MENTAL STATUS EXAMINATION: The patient is dressed in [facility]. The patient is cooperative during the interview. Has fair eye contact. Speech is normal rate, volume and articulation. Mood is significantly improved. Affect is congruent with mood. There is no evidence of delusions or hallucinations. Memory is fair. The patient is fully oriented. Associations are intact. Thinking is logical. Thought content is appropriate. The patient is able to contract for safety and denies suicidal or homicidal ideations during the interview. Insight and judgment is fair. ASSESSMENT: Major depressive disorder. PLAN: 1. Continue Effexor XR 75 mg by mouth every morning. 2. Continue trazodone 25 mg by mouth at bedtime. 3. Decrease sertraline to . 4. Continue medication management, individual and group therapy. 5. Discharge process has been started.
[2016-10-23 18:00] VITALS: BP 130/78
[2016-10-23] MEDS: traZODone 25MG PER 1/2 TABLET PO SCH (21:05)
[2016-10-24 06:18] VITALS: BP 104/54
[2016-10-24] MEDS ORDERED: SERTRALINE HCL 25 MG TABLET PO SCH (09:00)
[2016-10-24] MEDS: ADVAIR DISKUS 100/50 INH PWD INH SCH (09:28)
[2016-10-24] MEDS: VENLAFAXINE **XR** 75MG CAPSULE PO SCH (09:28)
[2016-10-24] MEDS ORDERED: TRAZ25TA PO (09:42)
[2016-10-24] MEDS ORDERED: SERT25TA PO (09:42)
[2016-10-24] MEDS ORDERED: VENL75CA PO (09:42)
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
== END 2016-10-24 10:55 | disposition home or self-care (01) | DRG 881 ==
LOC: M ED 03:21 → M ED INP 16:02 → M PSY 17:04
PROVIDERS: ADMIT Psychiatry & Neurology Psychiatry; ATTEND Psychiatry & Neurology Psychiatry
DX: F43.21 Adjustment disorder with depressed mood (principal); R45.851 Suicidal ideations; J45.909 Unspecified asthma, uncomplicated; F17.290 Nicotine dependence, other tobacco product, uncomplicated; Z84.1 Family history of disorders of kidney and ureter; Z79.899 Other long term (current) drug therapy

== ENCOUNTER → 2019-02-24 | Outpatient (REF) | payer OTHER ==
[~2019-02-24] MED LIST changes: +HYDR1TAB33 PO; +HYDR50TA70 PO; -HYDRO50TAB PO; +IBUP200C25 PO; +OXYC1TAB23 PO; +SERT-141 PO; +SERT25TA85 PO; -SERT50TA PO; +TRAZ1TAB11 PO; +VENL75CA2 PO
[2019-02-24 20:19] LABS: BASO # 0.1 10^3/uL (0.0-0.2); BASO % 0.9 % (0.0-1.0); EOS # 0.2 10^3/uL (0.0-0.5); EOS % 4.1 % (0.0-3.0); HEMATOCRIT 46.8 % (42.0-52.0); HEMOGLOBIN 16.3 g/dl (13.5-17.5); LYMPH # 1.9 10^3/uL (1.5-5.0); LYMPH % 34.3 % (24.0-44.0); MEAN CORPUSCULAR HEMOGLOBIN 30.9 pg (27.0-33.0); MEAN CORPUSCULAR HGB CONC 34.8 g/dl (32.0-36.5); MEAN CORPUSCULAR VOLUME 88.6 fl (80.0-96.0); MONO # 0.4 10^3/uL (0.0-0.8); MONO % 6.5 % (0.0-5.0); NEUTROPHILS % 53.7 % (36.0-66.0); PLATELET COUNT, AUTOMATED 312 10^3/uL (150-450); RED BLOOD COUNT 5.28 10^6/uL (4.30-6.10); WHITE BLOOD COUNT 5.7 10^3/uL (4.0-10.0)
[2019-02-24 20:29] LABS: ALBUMIN 4.1 GM/DL (3.2-5.2); ALT/SGPT 35 U/L (12-78); BILIRUBIN,TOTAL 0.9 MG/DL (0.2-1.0); BLOOD UREA NITROGEN 11 MG/DL (7-18); CALCIUM LEVEL 9.5 MG/DL (8.5-10.1); CARBON DIOXIDE LEVEL 30 MEQ/L (21-32); CHLORIDE LEVEL 105 MEQ/L (98-107); CHOLESTEROL LEVEL 137 MG/DL (<200); CHOLESTEROL RISK RATIO 2.978 (<5); GLOMERULAR FILTRATION RATE > 60.0 (>60); GLUCOSE, FASTING 83 MG/DL (70-100); HDL CHOLESTEROL 46 MG/DL (>40); LDL CHOLESTEROL 66 MG/DL (<100); NON-HDL-C 91 MG/DL; POTASSIUM SERUM 4.2 MEQ/L (3.5-5.1); SODIUM LEVEL 140 MEQ/L (136-145); TOTAL PROTEIN 6.9 GM/DL (6.4-8.2); TRIGLYCERIDES LEVEL 127 MG/DL (<150)
[2019-02-24 20:34] LABS: TOTAL 25(OH) VITAMIN D 15.3 NG/ML (30.0-100.0)
[2019-02-24 20:36] LABS: HEMOGLOBIN A1c 4.8 %
[2019-02-27 00:06] LABS: Lyme Disease IgG/IgM Antibodie <0.91 ISR (0.00-0.90); Lyme Disease IgM Ab Quantitati <0.80 index (0.00-0.79)
== END ==
LOC: M LAB REF 19:28
PROVIDERS: ATTEND Family Medicine
DX: Z13.228 Encounter for screening for other metabolic disorders (principal); M25.50 Pain in unspecified joint

== ENCOUNTER → 2019-04-08 | Outpatient (CLI) | payer OTHER ==
--- NOTE | 2019-04-08 08:46 | REP ---
MRI lumbar spine: 04/08/2019. Indication: Low back pain. Comparison: None. Technique: Multiplanar short and long TR sequences of the lumbar spine were performed. Findings: Vertebral body alignment is anatomic. No worrisome marrow signal is present. The visualized cord is normal. There is no significant disc desiccation or disc space narrowing. No focal disc herniations or areas of significant spinal canal / neural foraminal narrowing are present throughout the lumbar spine. Impression: Unremarkable MRI of the lumbar spine. Electronically Signed by Torrey Love DO 04/08/2019 08:38 A
== END ==
LOC: M RAD 07:32
PROVIDERS: ATTEND Family Medicine
DX: M54.5 Low back pain (principal)

== ENCOUNTER 2020-08-13 11:55 | Emergency (ER) | payer OTHER ==
[~2020-08-13] VITALS: Ht 175.3 cm; Wt 55.1 kg
[2020-08-13 13:53] LABS: BASO # 0.1 10^3/uL (0.0-0.2); BASO % 0.6 % (0.0-1.0); EOS % 0.5 % (0.0-3.0); HEMATOCRIT 41.8 % (42.0-52.0); HEMOGLOBIN 14.8 g/dl (13.5-17.5); LYMPH # 1.3 10^3/uL (1.5-5.0); LYMPH % 15.5 % (24.0-44.0); MEAN CORPUSCULAR HEMOGLOBIN 31.4 pg (27.0-33.0); MEAN CORPUSCULAR HGB CONC 35.4 g/dl (32.0-36.5); MEAN CORPUSCULAR VOLUME 88.7 fl (80.0-96.0); MONO # 0.3 10^3/uL (0.0-0.8); NEUTROPHILS # 6.7 10^3/uL (1.5-8.5); PLATELET COUNT, AUTOMATED 274 10^3/uL (150-450); RED BLOOD COUNT 4.71 10^6/uL (4.30-6.10); WHITE BLOOD COUNT 8.5 10^3/uL (4.0-10.0)
[2020-08-13 14:02] LABS: INR 1.02; PROTHROMBIN TIME 13.6 SECONDS (12.5-14.3)
[2020-08-13 14:03] LABS: PARTIAL THROMBOPLASTIN TIME 23.7 SECONDS (24.2-38.5)
[2020-08-13] MEDS ORDERED: HM S0.65 NARES (14:59)
[2020-08-13 15:04] VITALS: BP 118/65
--- NOTE | 2020-08-13 20:12 | ECGEPIP ---
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
== END 2020-08-13 15:18 | disposition home or self-care (01) ==
LOC: M ED 11:55
DX: R04.0 Epistaxis (principal); R11.2 Nausea with vomiting, unspecified; R42 Dizziness and giddiness; F41.9 Anxiety disorder, unspecified; F32.9 Major depressive disorder, single episode, unspecified; F17.200 Nicotine dependence, unspecified, uncomplicated; Z79.899 Other long term (current) drug therapy; Z91.89 Other specified personal risk factors, not elsewhere classified

== ENCOUNTER → 2020-09-08 | Outpatient (REF) | payer OTHER ==
[~2020-09-08] MED LIST changes: +HM S0.65 NARES
[2020-09-08 17:47] LABS: BASO # 0.1 10^3/uL (0.0-0.2); EOS # 0.2 10^3/uL (0.0-0.5); EOS % 3.3 % (0.0-3.0); HEMOGLOBIN 15.7 g/dl (13.5-17.5); LYMPH # 1.9 10^3/uL (1.5-5.0); LYMPH % 30.7 % (24.0-44.0); MEAN CORPUSCULAR HGB CONC 34.9 g/dl (32.0-36.5); MEAN CORPUSCULAR VOLUME 88.9 fl (80.0-96.0); MONO # 0.4 10^3/uL (0.0-0.8); MONO % 6.5 % (2.0-8.0); NEUTROPHILS # 3.5 10^3/uL (1.5-8.5); NEUTROPHILS % 58.2 % (36.0-66.0); PLATELET COUNT, AUTOMATED 290 10^3/uL (150-450); RED BLOOD COUNT 5.06 10^6/uL (4.30-6.10)
[2020-09-08 18:10] LABS: ALBUMIN 4.3 GM/DL (3.2-5.2); ALT/SGPT 29 U/L (12-78); BILIRUBIN,TOTAL 0.5 MG/DL (0.2-1.0); BLOOD UREA NITROGEN 17 MG/DL (7-18); CALCIUM LEVEL 9.1 MG/DL (8.5-10.1); CARBON DIOXIDE LEVEL 31 MEQ/L (21-32); CHLORIDE LEVEL 107 MEQ/L (98-107); CREATININE FOR GFR 0.73 MG/DL (0.70-1.30); GLOMERULAR FILTRATION RATE > 60.0 (>60); GLUCOSE, FASTING 90 MG/DL (70-100); POTASSIUM SERUM 4.3 MEQ/L (3.5-5.1); SODIUM LEVEL 140 MEQ/L (136-145); TOTAL 25(OH) VITAMIN D 9.6 NG/ML (30.0-100.0); TOTAL PROTEIN 7.2 GM/DL (6.4-8.2)
[2020-09-08 18:11] LABS: VITAMIN B12 LEVEL 530 PG/ML (247-911)
[2020-09-08 18:50] LABS: HIV 1&2 SCREEN CENTAUR NEGATIVE (NEGATIVE)
== END ==
LOC: M LAB REF 16:29
PROVIDERS: ATTEND Pediatrics
DX: M54.5 Low back pain (principal); F32.9 Major depressive disorder, single episode, unspecified